=== PATIENT | male | born 1965 | race Caucasian/White ===

== ENCOUNTER 2022-07-07 06:23 | Day surgery (SDC) | payer OTHER, SELFPAY ==
[2022-07-06 08:59] VITALS: BMI 24.8
[2022-07-07] VITALS (9 sets, daily range): BP systolic 111–137; BP diastolic 68–82; PULSE 58–72; RESP 16–19; TEMP 36.1–36.6; O2SAT 97–98
--- NOTE | 2022-07-07 07:00 | W.PM.OPSUD ---
Surgery/Procedure H&P Update DATE OF PROCEDURE: July 07, 2022 DATE H&P PERFORMED: 06/10/22 CHANGES TO PREVIOUS DOCUMENTATION: Patient seen and evaluated in preoperative holding area. Did review his EMG findings which showed bilateral carpal tunnel syndrome and only early cubital tunnel syndrome on the left side. This point time a detailed discussion about his exam findings as well as EMG findings. His EMG is roughly a year old. He had no findings of ulnar nerve neuropathy at the elbow on his EMG however on exam he has positive Tinel's over the cubital tunnel as well as a flexion test at the elbow showing tingling and decreased sensation in the ring and small finger. At this standpoint with shared decision making with the patient he would like to have both the carpal tunnel and cubital tunnel done to his right upper extremity. Patient understands and agrees with current plan. All questions answered. We will proceed with right carpal tunnel release and right cubital tunnel release with possible ulnar nerve transposition PREOP DIAGNOSIS: Right carpal tunnel syndrome, right cubital tunnel syndrome PRIMARY INDICATION FOR PROCEDURE: right carpal tunnel syndrome, right cubital tunnel syndrome PLANNED PROCEDURE: Operation Date: 07/07/22 08:05 Proposed Procedures p Carpal Tunnel Release 10306/carpal tunnel syndrome,bilateral G56.03/56.23(Right) - Heriberto Valverde DO s Ulnar Nerve Transposition 43455/ cubital tunnel syn, bilateral G56.03(Right) - Heriberto Valverde DO
[2022-07-07] MEDS: sodium chloride 0.9% 1,000 ML 30 ML IV (07:03)
--- NOTE | 2022-07-07 07:45 | ANES.PREANE2 ---
Pre-Anesthetic Assessment Height/Weight: Height 1.78 m Weight 78.471 kg Temp Pulse Resp BP Pulse Ox O2 Del Method 97.6 F 72 16 111/68 98 07/07/22 06:39 07/07/22 06:39 07/07/22 06:39 07/07/22 06:39 07/07/22 06:39 07/07/22 06:39 Preop Diagnosis: Right carpal tunnel syndrome, right cubital tunnel syndrome Operation Date: 07/07/22 08:05 Proposed Procedures p Carpal Tunnel Release 25022/carpal tunnel syndrome,bilateral G56.03/56.23(Right) - Heriberto Valverde DO s Ulnar Nerve Transposition 53866/ cubital tunnel syn, bilateral G56.03(Right) - Heriberto Valverde DO Familial anesthetic complications: none Was Beta Mery taken within 24 hours: N/A Was Clonidine taken within 24 hours: N/A Last intake: Intake Last Liquid Date 07/06/22 Last Liquid Time 21:00 Last Solid Date 07/06/22 Last Solid Time 18:00 Social No alcohol and No tobacco Exam alert, oriented x 3, clear to auscultation bilaterally and regular rate & rhythm Airway Submandibular: within normal limits Cervical ROM: within normal limits Mallampati: Class II Dentition: full Musc/skel Osteoarthritis/DJD Neuropsych Neuropathy Anesthetic Plan ASA status: 2 Anesthesia: General Medications/Allergies Home Medications Medication Instructions Recorded Confirmed Last Taken Type gabapentin 300 mg capsule 300 mg PO TID #30 caps 06/02/22 07/06/22 06/29/22 Rx meloxicam 15 mg tablet 15 mg PO DAILY 06/10/22 07/06/22 06/29/22 History Allergies Allergy/AdvReac Type Severity Reaction Status Date / Time codeine AdvReac Intermediate nausea Verified 07/07/22 06:35 Current Medications Generic Name Dose Route Start Last Admin Trade Name Freq PRN Reason Stop Dose Admin Sodium Chloride 1,000 mls @ 30 mls/hr 07/07/22 06:45 07/07/22 07:03 Sodium Chloride 0.9% IV 07/08/22 06:44 30 mls/hr .Q24H RADHA Administration PFSH Anesthesia Medical History Carpal tunnel syndrome Carpal tunnel syndrome, bilateral Cubital tunnel syndrome, bilateral Data Anesthesia Cardiac Studies: No Data to Display
[2022-07-07] MEDS: ceFAZolin 2,000 MG in sodium chloride 0.9% (plus) 50 ML 100 MG IV (08:18)
--- NOTE | 2022-07-07 09:47 | SUR.PHASEI ---
0930 PT TO PACU 5 PT SLEEPS WITH LMA IN PLACE ON RA SATS 100% GOOD AIRMOVEMENT, MONITOR SR WITH NO ECTOPY, VSS RT UPPER ARM TO FINGERS WITH SOFT DRESSING, DISTAL FINGERS PINK WARM WITH FAST CAP REFILL NOTED. BILAT SCDS ON, IV TO LT WRIST #20 WITH 300ML NS AT KVO RATE PER GRAVITY. 0943 PT AWAKENS , LMA REMOVED INTACT, PT AWAKE AND VERBALIZED NO PAIN OR NAUSEA, DR CERVANTES AT BEDSIDE. 0949 PT SLEEPS QUIETLY NO S/S OF PAIN VSS SATS 98%
--- NOTE | 2022-07-07 10:30 | PM.PACU ---
PACU note Narrative: Patient seen and evaluated in PACU. Patient recovering well. Dressings clean dry and intact and in place. Patient wiggling fingers. Patient is still sedated and out of it for thorough examination. His fingers are warm and well-perfused. Exam: somnolent, arousable (See narrative for examination, however limited secondary to patient still sedated from anesthesia.) Disposition: discharged
--- NOTE | 2022-07-07 10:30 | PM.OP2 ---
Brief Operative Note Date of procedure: 07/08/22 Pre-op diagnosis: Right carpal tunnel syndrome right cubital tunnel syndrome Post-op diagnosis: same Procedure Done: Right carpal tunnel release Right cubital tunnel release Surgeon: Heriberto Valverde Estimated blood loss (mL): 5 Complications: None Post-op Plan: Patient to recover in PACU. Patient in bulky soft dressing to hand and elbow. Patient will receive appropriate discharge instructions as well as pain medication postoperatively. We will get patient set up with OT hand therapy to begin range of motion. Patient will see me in office in 2 weeks. Condition: stable Disposition: same day Coding Level of Care Code Acute Cutting And Splicing Supervisor for Mark Valencia
--- NOTE | 2022-07-07 10:34 | P.OP_ITS ---
Operative Report Date of procedure: July 08, 2022 Pre-op diagnosis: Preop Diagnosis Right carpal tunnel syndrome, right cubital tunnel syndrome Post-op diagnosis: Same Procedure done: Right carpal tunnel release Right cubital tunnel release Surgeon: Heriberto Valverde DO Estimated blood loss: 10 30 IV fluids: See anesthesia record Complications: None Findings: See op note Condition: stable Disposition: same day Brief History: Patient was seen and evaluated on my office on 06/10/2022. Catrachito is a pleasant 56-year-old male who was having severe complaints of bilateral carpal tunnel syndrome as well as some complaints of ulnar nerve decreased sensation bilaterally as well. Patient a year prior to had a full work-up of an EMG and nerve conduction study which was done in [place]. 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 He was seen by his primary care physician referred to my office. His findings are consistent for bilateral carpal tunnel syndrome. On my examination in the office he did have signs of right cubital tunnel syndrome as well. As result I waited for patient to get my office the results from his EMG study from roughly a year ago. On the my discussion with Catrachito ended that once I see the results we will book him for a surgery for for sure a right carpal tunnel release however plus or minus right cubital tunnel release. His results came back with bilateral moderate carpal tunnel syndrome as well as early onset left cubital tunnel syndrome but still within normal limits. Patient's failed conservative treatment and ultimately wants to pursue surgical intervention. In the office we did have detailed discussion about the risk benefits complications alternatives of surgical nonsurgical treatment options and at this point time he is dealt with this long enough and he would like to have something done. He understands the risks which include but not limited to make it better, make it worse, not full sensation return of the nerve secondary to the chronicity of the carpal tunnel and cubital tunnel risk for infection, wound complications injury to nerves or vessels. Understanding these risks he does agree to proceed with surgical intervention. As result patient was booked for right carpal tunnel syndrome plus or minus right cubital tunnel syndrome with possible ulnar nerve transposition. In the preoperative holding area I did perform perform an additional physical examination he was positive for older elbow flexion test which elicited small finger symptoms in the office he was extremely positive Tinel's however today was more mild. At this point we did share in decision making and at this point patient is taking the time off for surgery and given he has decreased sensation in all 5 of the fingers with positive provocative symptoms on exam at the elbow even though his EMG from a year ago states that he did not have signs of ulnar nerve neuropathy at the elbow he ultimately through shared decision making with myself we agreed to proceed with a right cubital tunnel release with possible ulnar nerve transposition as well as a right carpal tunnel syndrome. Patient understands and agrees with current plan. All questions answered. Final consent was confirmed for right carpal tunnel syndrome and right cubital tunnel syndrome with possible ulnar nerve transposition Procedure: Patient was seen evaluated in the preoperative holding area. Consent was reviewed with patient and obtained. Correct extremity was then marked. Patient was then evaluated by the preoperative team. Seen by the anesthesia department. Patient was then taken to the operative suite and placed on the OR table supine position with a right arm table. Patient was appropriately secured all bony prominences well-padded. Patient next received appropriate preoperative antibiotics. Patient then underwent anesthesia per the anesthesia department. Final timeout was then performed. Patient's right upper extremity was then prepped and draped in standard orthopedic fashion. A sterile tourniquet was then placed to the right upper extremity. Esmarch tourniquet was used exsanguinate the extremity and tourniquet was inflated to 250 mmHg. First we started with our carpal tunnel syndrome marked her appropriate borders in line with the fourth ray starting at my most distal aspect the incision at the Ellsworth's cardinal line. This was then advanced roughly 2-1/2 cm in length. Sharp scalpel excision through skin and subcutaneous tissue. Palmar fascia was then encountered and then split longitudinally self retainer was then placed gentle feathering was then performed and encountered the palmaris brevis and then directly over top of the transverse carpal ligament was identified. This was then incised with a 15 blade scalpel until I encountered the floor of the ligament. I then entered the carpal tunnel. Once a small hole was then made I utilized a [place] to mobilize the ligament both proximally and distally. I then utilized Littler dissection scissors with care to stay above the contents of the carpal tunnel and released the transverse carpal ligament distally to the distalmost extent of the ligament and then encountered fat and the distal release was complete. Next I utilized Littler's to open a space above the transverse carpal ligament proximally. A Bry rake was then placed above the ligament and a [place] was then placed directly underneath the transverse carpal ligament at this point used sharp scalpel excision to incise directly over to the [place] with care and injure no contents of the carpal tunnel. Once a had a larger opening I then switched my Littler dissection scissors and under direct loupe magnification visualization released to the proximal extent of the transverse carpal ligament with care to have my light layers curved ulnarly with care to not injure the palmar cutaneous branch of the median nerve. Once appropriately decompressed proximally I then placed a [place] underneath proximally and found no bands of constriction above the median nerve and appropriate decompression of the transverse carpal ligament and the medial antebrachial fascia. Contents of the carpal tunnel were inspected and no evidence of masses. The median nerve did have significant hourglass deformity due to constriction of the transverse carpal ligament. Care was made to not injure the recurrent motor branch of the median nerve. This completed the carpal tunnel release. Wound bed was thoroughly irrigated and closed with interrupted nylon 4-0 suture. Next attention was then turned towards the cubital tunnel release. A small curvilinear incision directed over the course of the ulnar nerve was then made centered between the medial epicondyle as well as the olecranon. Total incision length was roughly 6 cm. Sharp scalpel excision through skin and subcutaneous tissue. Care was made to not injure the cutaneous nerve branch. Then dissected directly down to the fascia of the FCU. The by pentetate heads of the fascia was then identified and incision was then made directly over the fascia the muscle belly was spread and the ulnar nerve was then found. At this point under direct loupe magnification and appropriate retraction I then released the cubital tunnel distally until there is no areas of entrapment this point then I utilized a combination of sharp scalpel excision as well as Littler dissection scissors to track and release our nerve up proximally. The nerve did appear to be compressed at the level of the Henriquez's ligament with hourglass formation as well as areas of irritation/inflammation. Henriquez's ligament was then released and the nerve was then traced proximally. Littler dissection scissors were used to completely decompress the nerve proximally as well as then with blunt dissection to confirm complete release of the ulnar nerve proximally. Ulnar nerve was then appropriately decompressed with no areas of entrapment and then the elbow was then taken through range of motion to evaluate for any subluxation. No subluxation was performed as result decompression left in situ. Wound bed was then thoroughly irrigated. The tourniquet was then deflated. Hemostasis was maintained with bipolar electrocautery as well as manual pressure. Simple interrupted subcu 2-0 Vicryl suture were then placed to close to approximate the skin edges and then a running horizontal mattress stitch was then placed with 4-0 nylon suture. Fingers warm well perfused. Hemostasis adequate at the carpal tunnel incision. Incisions were then dressed with Xeroform 4 x 4's ABDs Curlex and an Carlo wrap. Patient was then awakened from anesthesia and taken to PACU in stable condition. Disposition: Patient taken to PACU in stable condition. Will be given appropriate discharge directions as well as pain medication. We will get him set up with OT therapy early next week for early range of motion and dressing change. We will see me in office in 2 weeks. He understands if he has any questions he can contact the office.
--- NOTE | 2022-07-07 14:06 | ANE.PACU2 ---
Inpatient post-anesthesia follow up: Airway intact: Yes Vital signs: Temperature 98 F Pulse Rate 60 Respiratory Rate 17 Blood Pressure 130/74 Pulse Oximetry 98 Oxygen Delivery Me thod Room Air Oxygen Flow Rate Fraction of Inspir ed Oxygen Hydration adequate: Yes Nausea and vomiting: No Pain level: 1 Mental status: Baseline
== END 2022-07-07 10:40 | disposition home or self-care (01) ==
PROVIDERS: PCP Family Medicine; Visit Provider Student in an Organized Health Care Education/Training Program
PROC: (CPT 64721; principal; 2022-07-07 08:05)
PROC: (CPT 64719; 2022-07-07 08:05)
DX: G56.03 Carpal tunnel syndrome, bilateral upper limbs (principal); G56.23 Lesion of ulnar nerve, bilateral upper limbs; Z88.5 Allergy status to narcotic agent
CPT/HCPCS: 64719; 64721; J1100; J1885; J2250; J2405; J2704; J2795; J3010; J3490; J7030

== ENCOUNTER 2022-07-12 | Outpatient (RCR) | payer OTHER, SELFPAY | END 2022-07-23 23:59 | disposition home or self-care (01) | LOC: SOT | PROVIDERS: PCP Family Medicine; Visit Provider Student in an Organized Health Care Education/Training Program | DX: G56.01 Carpal tunnel syndrome, right upper limb (principal); G56.21 Lesion of ulnar nerve, right upper limb | CPT/HCPCS: 97110; 97165 ==

== ENCOUNTER 2022-07-28 08:18 | Day surgery (SDC) | payer OTHER, SELFPAY ==
--- NOTE | 2022-07-28 07:50 | ANES.PREANE2 ---
Pre-Anesthetic Assessment Height/Weight: Height 1.78 m Weight 77.111 kg Preop Diagnosis: Right carpal tunnel syndrome, right cubital tunnel syndrome Operation Date: 07/28/22 09:50 Proposed Procedures p RIGHT CARPAL TUNNEL RELEASE [id number], RIGHT CUBITAL TUNNEL RELEASE WITH POSSIBLE ULNAR NERVE TRANSPOSITION 55395, 25731,G56.03,G56.23(Right) - Heriberto Valverde DO s Cubital Tunnel Release(Right) - Heriberto Valverde DO Familial anesthetic complications: None Was Beta Mery taken within 24 hours: N/A Was Clonidine taken within 24 hours: N/A Social No alcohol and No tobacco Exam alert, oriented x 3, clear to auscultation bilaterally and regular rate & rhythm Airway Submandibular: within normal limits Cervical ROM: within normal limits Mallampati: Class II Dentition: full History/ROS No significant complaints Pulmonary None reported CV/HEM None reported None reported Hepatic None reported GI None reported Metabolic None reported Musc/skel Osteoarthritis/DJD carpal tunnel syndrome Neuropsych Neuropathy Anesthetic Plan ASA status: 2 Anesthesia: Anesthesia Evaluation, General and MAC Other: I discussed with the patient risks, goals, and benefits of MAC and general anesthesia. We discussed spectrum of MAC anesthesia including conversion to general as well as possibility of recall of intraoperative stimuli including discomfort/pain. Patient agrees to proceed with MAC. Risk of > 500 ml blood loss (7ml/kg in children): No Medications/Allergies Home Medications Medication Instructions Recorded Confirmed Last Taken Type meloxicam 15 mg tablet 15 mg PO DAILY 06/10/22 07/28/22 07/27/22 History Allergies Allergy/AdvReac Type Severity Reaction Status Date / Time codeine AdvReac Intermediate nausea Verified 07/28/22 08:27 [facility] Anesthesia Medical History Carpal tunnel syndrome Carpal tunnel syndrome, bilateral Cubital tunnel syndrome, bilateral Data Anesthesia Cardiac Studies: No Data to Display
[2022-07-28 08:31] VITALS: BP 112/69; PULSE 61; RESP 18; TEMP 36.1; O2SAT 97
[2022-07-28] MEDS: sodium chloride 0.9% 1,000 ML 30 ML IV (08:47)
[2022-07-28] MEDS: acetaminophen 1,000 MG/100 ML PIGGYBACK 400 MG IV (08:48)
[2022-07-28] MEDS: ketorolac 30 mg/mL INJ IVP (08:48)
[2022-07-28] MEDS: ceFAZolin 2,000 MG in sodium chloride 0.9% (plus) 50 ML 100 MG IV (11:17)
--- NOTE | 2022-07-28 11:17 | W.PM.OPSUD ---
Surgery/Procedure H&P Update DATE OF PROCEDURE: July 28, 2022 DATE H&P PERFORMED: 08/19/22 CHANGES TO PREVIOUS DOCUMENTATION: None PREOP DIAGNOSIS: Left carpal tunnel syndrome, left cubital tunnel syndrome PRIMARY INDICATION FOR PROCEDURE: Left carpal tunnel left carpal tunnel syndrome, left cubital tunnel syndrome. PLANNED PROCEDURE: Operation Date: 07/28/22 09:50 Proposed Procedures p RIGHT CARPAL TUNNEL RELEASE [id number], RIGHT CUBITAL TUNNEL RELEASE WITH POSSIBLE ULNAR NERVE TRANSPOSITION 23722, 80596,G56.03,G56.23(Right) - Hreiberto Valverde DO s Cubital Tunnel Release(Right) - Heriberto Valverde DO
[2022-07-28] MEDS: lidocaine 1% INJ 50 mL INJECTION (11:40)
--- NOTE | 2022-07-28 12:00 | P.OP_ITS ---
Brief Operative Note Date of procedure: 07/29/22 Pre-op diagnosis: Left carpal tunnel syndrome, left cubital tunnel syndrome Post-op diagnosis: same Procedure Done: Left carpal tunnel release, left cubital tunnel release Surgeon: Heriberto Valverde Estimated blood loss (mL): 5 Complications: None Post-op Plan: Patient recovering in PACU. Dressing clean dry and intact fingertips warm well perfused. Patient soft dressing on in place. Patient pain well controlled. Will be given appropriate discharge instructions was pain medication postoperatively. We will get him seen by OT hand therapy for early dressing change and beginning a range of motion. We will see him back in the office in 2 weeks for repeat evaluation and sutures removal. Condition: stable Disposition: same day Coding Level of Care Code Acute Psychiatric Aide Instructor for Mark Valencia
--- NOTE | 2022-07-28 12:09 | PM.PACU ---
PACU note Narrative: Patient seen evaluated in PACU resting comfortably. Patient able to follow commands. Still has some numbness in median nerve distribution secondary to local block. He is able to wiggle his fingers. Fingertips warm well perfused. Brisk capillary refill less than 2 seconds. Dressing on in place clean dry and intact. Exam: awake (See narrative for detailed exam) Disposition: discharged
[2022-07-28 12:37] VITALS: BP 131/76; PULSE 70; RESP 10; TEMP 36.4; O2SAT 98
[2022-07-28 12:42] VITALS: BP 124/75; PULSE 67; RESP 12; O2SAT 97
[2022-07-28 12:47] VITALS: BP 129/72; PULSE 72; RESP 15; O2SAT 98
[2022-07-28 12:52] VITALS: BP 130/76; PULSE 64; RESP 14; TEMP 36.3; O2SAT 96
[2022-07-28 12:59] VITALS: BP 129/69; PULSE 64; RESP 16; TEMP 36.4; O2SAT 98
[2022-07-28] MEDS: HYDROcodone-acetaminophen 5-325 mg Tablet 1 TAB PO (13:40)
--- NOTE | 2022-07-28 13:41 | ANE.PACU2 ---
Inpatient post-anesthesia follow up: Airway intact: Yes Vital signs: Temperature 97.5 F Pulse Rate 64 Respiratory Rate 16 Blood Pressure 129/69 Pulse Oximetry 98 Oxygen Delivery Me thod Room Air Oxygen Flow Rate Fraction of Inspir ed Oxygen Hydration adequate: Yes Nausea and vomiting: No Pain level: 1 Mental status: Baseline
--- NOTE | 2022-07-28 15:59 | P.OP_ITS ---
Operative Report Date of procedure: July 28, 2022 Pre-op diagnosis: Preop Diagnosis Left carpal tunnel syndrome, left cubital tunnel syndrome Post-op diagnosis: Same Procedure done: Left carpal tunnel release, left cubital tunnel release Surgeon: Heriberto Valverde DO Estimated blood loss: 5 cc 23 minutes IV fluids: See anesthesia record Complications: None Findings: See operative note Condition: stable Disposition: same day Brief History: Catrachito is a pleasant established 56-year-old gentleman to my practice. He has been seen evaluated and worked up for his bilateral carpal tunnel syndrome as well as bilateral cubital tunnel syndrome. Initially on his presentation he had significant right symptoms over left. He had a previous EMG findings consistent with bilateral carpal tunnel syndrome as well as early left cubital tunnel syndrome back in 2020. This point time he is now almost 3 weeks out from his right carpal tunnel release and right cubital tunnel release. He is doing extremely well. He was seen in my office in outpatient follow-up and at that point time through shared decision making talked about the risk benefits complication alternatives to nonoperative operative treatment for the left carpal tunnel syndrome and left cubital tunnel syndrome. Ultimately through shared decision-making elects proceed with surgical intervention for left carpal tunnel release and left cubital tunnel release. Detailed the ins and outs of the procedure. He understands the risk benefits complications alternatives to treatment options. Risks include but are not limited to make it better, make it worse, infection, loss of function to the hand, permanent paresthesias injury to nerves or vessels, and incomplete recovery of peripheral neuropathy. Patient understand these risks and agrees to proceed with surgical intervention. Consent was obtained in the office. All questions answered. Procedure: Patient was seen evaluated in the preoperative holding area. Consent was reviewed with patient the correct extremity was marked as well as sites for surgery. All questions were answered. He was seen evaluated by the anesthesia department as well as preoperative team. Once cleared for surgery was taken back to the OR suite and transported onto the operative table with armboard to the left upper extremity. He underwent anesthesia per the anesthesia department. Once appropriately anesthetized patient was then prepped and draped in standard orthopedic fashion. Final timeout performed. Patient received a ppropriate preoperative antibiotics. Sterile tourniquet was applied to the left upper extremity. Esmarch tourniquet was used exsanguinate the extremity to 250 mmHg. Patient underwent local anesthesia to the left carpal tunnel with 5 cc of lidocaine and 5 cc of ropivacaine. This point time marked my standard incision in line with the fourth ray at the ulnar border and my most distal extent being at Ellsworth's cardinal line. I made a small 2.5 cm incision centering directly over the transverse carpal ligament. Sharp scalpel excision through skin and subcutaneous tissue. I then incised the palmar fascia longitudinally. Utilize a self retainer as well as Kasdan retractors to protect all neurovascular important structures. I then sharp scalpel excision directly over the transverse carpal ligament until I encountered entered the carpal tunnel. This point time I switched to Littler dissection scissors and at this point I focused my attention distally. Utilizing care to not injure any nerves or vessels I then on direct direct loupe magnification visualization used the scissors to release the carpal tunnel distally until I encountered the palmar fat this released and freed my median nerve distally. At this point I then spread on top of the transverse carpal ligament proximally and placed my Bry rake in this area elevating the fat off of the transverse carpal ligament and under direct visualization utilized my scissors to complete my transverse carpal release proximally under direct visualization with care to curved my scissors to the ulnar side and not to injure the palmar cutaneous branch of the median nerve. This completed my decompression I utilized a Munday that felt no entrapment of the nerve proximally and complete release into the median antebrachial fascia. Confirm no entrapment proximally. I then once again followed the nerve distally and showed complete release of the transverse carpal ligament distally. Care was made to not injure the motor recurrent branch. Throughout this case. The nerve was inspected and showed signs of hourglass deformity due to its entrapment with moderate irritation inflammation noted around the nerve. No masses were noted within the carpal tunnel. This completed my carpal tunnel release. The wound bed was then thoroughly irrigated. Interrupted nylon suture was then used to close the skin. Next I turned my attention towards the cubital tunnel release. I utilized sharp scalpel excision in a curvilinear fashion centering in line with the ulnar nerve path. Sharp scalpel through skin and subcutaneous tissue. Immediately once I encountered subcutaneous tissue I then switched my Littler dissection scissors to protect any subcutaneous branches. This point time I dissected directly down over the course of the ulnar nerve. I incised between the 2 heads of the FCU fascia and identified the nerve distally. Once this was found there was noted to be a significant entrapment at the Henriquez's ligament where the nerves appear to be significantly entrapped. At this point I utilized a combination of 15 blade scalpel as well as Littler dissection scissors to completely decompress the nerve distally and was able to place my finger into the distal aspect of the forearm with no areas of entrapment of the ulnar nerve. I then utilized my dissection scissors to remove Henriquez's ligament and free the entrapment in this area. I then followed by release proximally. The lysis was performed of the nerve with dissection scissors. I then released the nerve completely proximally into the upper arm with no further evidence of entrapment. The elbow was then taken through multiple ranges of motion of flexion extension with no evidence of ulnar nerve subluxation. The nerve was noted to be significantly irritated at Henriquez's ligament. This point the wound bed was then thoroughly irrigated. The tourniquet was deflated. I utilized bipolar electrocautery to maintain exact hemostasis. I then closed the subcutaneous tissue with 3-0 interrupted Vicryl sutures. And then in a running horizontal mattress stitch closed the skin with nylon suture. Patient's left hand was checked and was warm well-perfused brisk capillary refill less than 2 seconds. Incisions were then cleaned patted dry and Xeroform 4 x 4's ABD Curlex and an Carlo wrap was placed to the left upper extremity. Patient was then awakened from anesthesia and taken to PACU in stable condition. Patient tolerated procedure without complications. Disposition: Patient recovering in PACU. Patient seen and evaluated and doing well. Dressing on in place clean dry and intact. He will be given appropriate discharge instructions as well as pain medication and appropriate follow-up. We will have him see our OT hand therapy department within the next week for dressing takedown as well as to begin range of motion and nerve gliding exercises. Patient understands and agrees with current plan. All questions answered. He will see me in 2 weeks.
== END 2022-07-28 14:33 | disposition home or self-care (01) ==
PROVIDERS: PCP Family Medicine; Visit Provider Student in an Organized Health Care Education/Training Program
PROC: (CPT 64721; principal; 2022-07-28 09:40)
PROC: (CPT 64718; 2022-07-28 09:40)
DX: G56.02 Carpal tunnel syndrome, left upper limb (principal); G56.22 Lesion of ulnar nerve, left upper limb
CPT/HCPCS: 64718; 64721; J1100; J1885; J2250; J2405; J2704; J2795; J3010; J7030

== ENCOUNTER 2022-08-05 06:00 | Outpatient (RCR) | payer OTHER, SELFPAY | END 2022-08-23 23:59 | disposition home or self-care (01) | LOC: SOT 06:00 | PROVIDERS: PCP Family Medicine; Visit Provider Student in an Organized Health Care Education/Training Program | DX: G56.02 Carpal tunnel syndrome, left upper limb (principal) | CPT/HCPCS: 97110; 97166 ==

== ENCOUNTER → 2022-08-12 08:04 | Outpatient (BNVA) | payer OTHER, SELFPAY | PROVIDERS: PCP Family Medicine; Visit Provider Student in an Organized Health Care Education/Training Program | DX: M17.0 Bilateral primary osteoarthritis of knee (principal); G56.23 Lesion of ulnar nerve, bilateral upper limbs; G56.03 Carpal tunnel syndrome, bilateral upper limbs | CPT/HCPCS: 73560; 73565 ==

== ENCOUNTER 2022-08-30 06:13 | Outpatient (CLI) | payer OTHER, SELFPAY ==
--- NOTE | 2022-08-30 06:30 | CT_ITS ---
WS: [id number] CT LEFT KNEE, NONCONTRAST TECHNIQUE: Noncontrast CT of the LEFT knee to include the LEFT hip and ankle. CLINICAL INFORMATION: LEFT TKA OMARI PROTOCOL COMPARISON: None. DLP: [id number] scans at [facility] use at least one of these dose optimization techniques: automated e xposure control; mA and/or kV adjustment per patient size (includes targeted exams where dose is matc hed to clinical indication); or iterative reconstruction. FINDINGS: Advanced tricompartmental arthritis worse the medial joint compartments. Chondrocalcinosis. Hypertrop hic changes along the joint line. Slightly hypertrophic patella. Mild degenerative narrowing both hip s with slight hypertrophic changes. CT/CT knee LT [facility] IMPRESSION: Images obtained for preoperative purposes.
== END 2022-08-30 06:14 | disposition home or self-care (01) ==
LOC: RAD 06:14
PROVIDERS: PCP Family Medicine; Visit Provider Student in an Organized Health Care Education/Training Program
DX: Z01.818 Encounter for other preprocedural examination (principal); M25.562 Pain in left knee
CPT/HCPCS: 73700

== ENCOUNTER 2022-08-31 11:43 | Outpatient (CLI) | payer OTHER, SELFPAY | END 2022-08-31 11:44 | disposition home or self-care (01) | LOC: RT 09-01 11:44 | PROVIDERS: PCP Family Medicine; Visit Provider Student in an Organized Health Care Education/Training Program | DX: Z01.89 Encounter for other specified special examinations (principal) | CPT/HCPCS: 93005 ==

== ENCOUNTER 2022-09-08 09:27 | Observation (INO) | payer OTHER, SELFPAY ==
--- NOTE | 2022-08-31 14:12 | ECG_ITS ---
[facility] Test Date: 2022-08-31 Pat Name: Catrachito Phillips Department: Room: Gender: Male [employer] Culler: : 1965 Requested By: Heriberto Valverde Order Number: [id number] Thai MD: Bebeto Marie M.D. Measurements Intervals [place] Rate: 70 P: 15 WA: 151 QRS: 12 QRSD: 91 T: 5 QT: 357 QTc: 385 Interpretive Statements SINUS RHYTHM No previous ECG available for comparison Electronically Signed On 08-31-2022 21:06:49 PROFESSIONAL FEE CODER by Bebeto Marie M.D. [id number]
[2022-08-31 14:28] VITALS: BMI 24.3
[2022-08-31 15:21] LABS: Add Urine Microscopic? NO; Charge for UA Resulting for Rev
[2022-08-31 15:25] LABS: Basophils # 0.1 10^3/uL (0.0-0.1); Basophils % 1.2 %; Eosinophils # 0.1 10^3/uL (0.0-0.8); Hematocrit 44.4 % (42.0-52.0); Hemoglobin 15.3 g/dL (11.7-16.6); Lymphocytes # 1.8 10^3/uL (0.8-4.8); Lymphocytes % 35.3 %; Mean Corpuscular HGB Conc 34.5 g/dL (30.0-36.0); Mean Corpuscular Volume 92.9 fl (80-94); Mean Platelet Volume 9.8 fL (7.4-10.4); Monocytes # 0.6 10^3/uL (0.2-0.9); Monocytes % 12.7 %; Neutrophils # 2.47 10^3/uL (1.8-7.7); Neutrophils % 49.6 %; Nucleated Red Blood Cells % 0 %; Platelet Count 254 10^3/cmm (130-400); Red Blood Count 4.78 10^6/uL (4.1-5.3); Red Cell Distribution Width 11.9 % (12.1-15.1)
--- NOTE | 2022-08-31 15:35 | P.ANESASSM_ITS ---
Pre-Anesthetic Assessment Height/Weight: Height 1.78 m Weight 77.111 kg Preop Diagnosis: Left knee degenerative joint disease Operation Date: 09/08/22 10:20 Proposed Procedures p Justin Robot Total Knee Arthroplasty(Left) - Heriberto Valverde DO Familial anesthetic complications: none Was Beta Mery taken within 24 hours: N/A Was Clonidine taken within 24 hours: N/A Social No alcohol and No tobacco Exam alert, oriented x 3, clear to auscultation bilaterally and regular rate & rhythm Airway Submandibular: within normal limits Cervical ROM: within normal limits Mallampati: Class II Dentition: full Musc/skel Osteoarthritis/DJD Anesthetic Plan ASA status: 2 Anesthesia: Regional (specify below) (SAB with adductor blk) Medications/Allergies Home Medications Medication Instructions Recorded Confirmed Last Taken Type meloxicam 15 mg tablet 15 mg PO DAILY 06/10/22 08/12/22 07/27/22 History Allergies Allergy/AdvReac Type Severity Reaction Status Date / Time codeine AdvReac Intermediate nausea Verified 08/31/22 14:30 [facility] Anesthesia Medical History (Updated 08/16/22 @ 20:59 by Heriberto Vavlerde DO) Carpal tunnel syndrome Carpal tunnel syndrome, bilateral Cubital tunnel syndrome, bilateral Left knee DJD Right knee DJD Data Anesthesia : 08/31/22 14:45 08/31/22 14:45 Short CBC 08/31/22 Range/Units 14:45 WBC 5.0 (4.0-10.0) 10^3/uL Hgb 15.3 (11.7-16.6) g/dL Hct 44.4 (42.0-52.0) % MCV 92.9 (80-94) fl Plt Count 254 (130-400) 10^3/cmm Neut % (Auto) 49.6 % Neut # (Auto) 2.47 (1.8-7.7) 10^3/uL Cardiac Studies: No Data to Display
[2022-08-31 15:37] LABS: INR 1.02 (0.8-1.2)
[2022-08-31 15:41] LABS: Bilirubin Urine Neg (Negative); Blood Urine Neg (Negative); Glucose Urine UA Norm (Normal); Ketones Urine Negative (Negative); Leukocyte Esterase Urine Negative (Negative); Nitrate Urine Negative (Negative); Protein Urine Neg (Negative); Urine Appearance Clear (CLEAR); Urine Color Yellow (Yellow); Urobilinogen Urine Neg (Negative); pH Urine 5 (5-7)
[2022-08-31 15:42] LABS: Alanine Aminotransferase 18 U/L (0-41); Albumin Level 4.3 g/dL (3.5-5.2); Alkaline Phosphatase 72 U/L (40-130); Anion Gap 13.1 (5-19); Aspartate Amino Transferase 18 U/L (0-40); Blood Urea Nitrogen 8 mg/dL (6-20); Calcium 9.3 mg/dL (8.5-10.5); Carbon Dioxide 29 mmol/L (22-29); Chloride 97 mmol/L (98-107); Creatinine Clr Calc Pharmacy 111.4482; Globulin 2.9 g/dL (1.3-4.6); Glomerular Filtration Rate 100.7 mL/min (90-130); Glucose 84 mg/dL (65-115); Osmolality Calculated 278 mOsm/kg (285-295); Potassium 4.1 mmol/L (3.5-5.1); Sodium 135 mmol/L (136-145); Total Bilirubin 0.3 mg/dL (0.15-1.2); Total Protein 7.2 g/dL (6.6-8.7)
[2022-09-08] VITALS (18 sets, daily range): BP systolic 104–119; BP diastolic 52–76; PULSE 68–100; RESP 15–19; TEMP 36.1–36.6; O2SAT 94–99
[2022-09-08] MEDS: sodium chloride 0.9% 1,000 ML 30 ML IV (06:05)
[2022-09-08] MEDS: acetaminophen 1,000 MG/100 ML PIGGYBACK 400 MG IV (06:05)
[2022-09-08] MEDS: scopolamine 1.5 Patch 1 PATCH TRANSDERMA (06:07)
[2022-09-08] MEDS: ketorolac 30 mg/mL INJ IVP (06:14)
[2022-09-08] MEDS: gabapentin 300 mg Capsule PO (06:15)
--- NOTE | 2022-09-08 06:27 | P.ANESUD_ITS ---
Pre-Anesthetic Update Pre-Anesthetic Assessment: Date of Surgery/Procedure: 09/08/22 Preop Karen gnosis: Left carpal tunnel syndrome, left cubital tunnel syndrome Proposed Procedure: Operation Date: 09/08/22 07:00 Proposed Procedures p Justin Robot Total Knee Arthroplasty(Left) - Heriberto Valverde, DO Any changes to Pre-Anesthetic Assessment?: No Last Intake: Intake Last Liquid Date 09/07/22 Last Liquid Time 21:00 Last Solid Date 09/07/22 Last Solid Time 17:30 Vitals: Temperature 97.8 F 09/08/22 05:49 Temperature Source Temporal Artery S can 09/08/22 05:49 Pulse Rate 72 09/08/22 05:49 Respiratory Rate 16 09/08/22 05:49 Blood Pressure 111/71 09/08/22 05:49 Blood Pressure Senia n 84 09/08/22 05:49 Pulse Oximetry 95 09/08/22 05:49 Oxygen Delivery Me thod 09/08/22 05:49 Exam: Pre-Anes Outpt Exam: alert, oriented x 3, clear to auscultation bilaterally and regular rate & rhythm Cardiac Studies: No Data to Display
--- NOTE | 2022-09-08 07:03 | W.PM.OPSUD ---
Surgery/Procedure H&P Update DATE OF PROCEDURE: September 08, 2022 DATE H&P PERFORMED: 08/12/22 CHANGES TO PREVIOUS DOCUMENTATION: None PREOP DIAGNOSIS: Left knee degenerative joint disease with failed conservative treatment PRIMARY INDICATION FOR PROCEDURE: Left knee degenerative joint disease with failed conservative treatment PLANNED PROCEDURE: Operation Date: 09/08/22 07:00 Proposed Procedures p Justin Robot Total Knee Arthroplasty(Left) - Heriberto Valverde DO
[2022-09-08] MEDS: ceFAZolin 2,000 MG in sodium chloride 0.9% (plus) 50 ML 100 MG IV ×3 (07:10→23:23)
[2022-09-08] MEDS: ketorolac 30 mg/mL INJ XX (08:14)
[2022-09-08] MEDS: EPINEPHrine 1 mg/mL INJ XX (08:15)
[2022-09-08] MEDS: tranexamic acid 1,000 mg/10mL SDV 1000 MG XX (08:16)
--- NOTE | 2022-09-08 09:56 | PC.NURSE ---
ice applied to left knee
--- NOTE | 2022-09-08 10:01 | XR_ITS ---
WS: [id number] Exam: XR knee LT 1-2V 64505 Date/Time of Exam: 09/08/2022 10:01 AM Reason For Exam: postop TKA Comparison 08/12/2022. Total knee arthroplasty noted in excellent position. Postoperative changes in the adjacent soft tissu es. XR/XR knee LT 1-2V 34364 IMPRESSION: 1. Total knee arthroplasty in excellent position.
--- NOTE | 2022-09-08 10:05 | P.OP_ITS ---
Brief Operative Note Date of procedure: 09/08/22 Pre-op diagnosis: Degenerative joint disease to left knee, failed conservative treatment Post-op diagnosis: same Procedure Done: Left total knee arthroplasty, cemented Surgeon: Heriberto Valverde Estimated blood loss (mL): 50 Complications: None Post-op Plan: Patient recovering well in PACU. Patient received spinal anesthesia. Dressing on in place clean dry and intact. Will be admitted to the floor. Will be seen evaluated by internal medicine for medical management. PT/OT. Pain control. DVT prophylaxis with aspirin 325 twice daily. Weightbearing as tolerated left lower extremity, range of motion left knee as tolerated. Plan for likely discharge tomorrow. Condition: stable Disposition: floor Coding Level of Care Code Acute Slope Hoist Operator for Mark Valencia
--- NOTE | 2022-09-08 10:06 | PM.PACU ---
PACU note Narrative: Patient recovering well in PACU. Pain controlled. Received spinal anesthesia unable to assess motor or sensory. Dressing on in place clean dry and intact distal pulses palpable. Exam: awake (See narrative for detailed exam) Disposition: admitted
--- NOTE | 2022-09-08 10:07 | PM.OP ---
Operative Report Date of procedure: September 08, 2022 Pre-op diagnosis: Preop Diagnosis Left knee degenerative joint disease with failed conservative treatment Post-op diagnosis: Same Procedure done: Left total knee arthroplasty, cemented?Justin Implants: Size 4 triathlon Joaquim cruciate retaining femoral implant Size 4 triathlon tibial universal baseplate Size 4 polyethylene 11 mm thick Asymmetric patella 32 mm Surgeon: Heriberto Valverde DO Estimated blood loss: 50mL 75min IV fluids: See anesthesia record Complications: None Findings: See operative report Condition: stable Disposition: floor Brief History: Patient is a 56-year-old male seen evaluated in the outpatient setting for degenerative joint disease of his bilateral knees. We are working up his left knee as this hurts him more. Patient's failed conservative treatment in the outpatient setting. His x-ray findings consistent with severe degenerative joint disease with [id number] arthritis. He has failed injections as well as stem cells. At this point in time after thorough detailed discussion we talked about next step for surgical intervention being a left total knee arthroplasty. This point time he is mentally ready to pursue this treatment option and like to pursue a left total knee arthroplasty. We talked about the risk benefits complication alternatives surgical nonsurgical treatment options. He understands and agrees to proceed with surgical intervention. All questions answered. Procedure: Patient seen evaluated in the preoperative holding area. Consent was reviewed with patient and signed. The correct extremity was then marked. Patient seen evaluated by the anesthesia and preoperative team once cleared for surgery was taken back to the operative suite. Patient taken back to the operative suite. He underwent spinal anesthesia per the anesthesia department. He transported the operative table. All bony prominences well-padded patient was appropriately secured to the bed. This point time the left lower extremity was then prepped and draped in standard orthopedic fashion. Patient received appropriate preoperative antibiotics. Final timeout performed. Esmarch tourniquet was used exsanguinate the left lower extremity. Tourniquet was insufflated to 325 mmHg. A standard anterior incision was made over midline of the knee. Sharp scalpel excision through skin and subcutaneous tissue full-thickness skin flaps were made. Fascia was elevated off of the extensor retinaculum was stable with parapatellar arthrotomy was then made. The performed standard sequential releases with a medial release was patient had a varus deformity. Next the the patella was then stopped and the knee was then flexed. Armboard was placed superiorly around the anterior aspect of the femur this was freed avulsed synovium and I subsequently then placed by 2 femur pins to establish my femur arrays for the Justin robot. These were then placed bicortically and by femur rate was then appropriately secured with appropriate visualization. Next attention was turned towards the tibial rays. These were then drilled sequentially bicortically in parallel fashion. I then placed my guide as well as my tibial array on in place. This was appropriately secured and had excellent visualization with the Justin robot. Next the tibial checkpoint as well as femur checkpoint were then placed. At this point time I then subsequently established my head center as well as my medial lateral malleoli as well as my checkpoints. Next utilizing standard [employer] technology I then mapped out the appropriate points and confirmation points around the femur as well as the tibia in standard fashion. Once this was then done I then removed all osteophytes in preparation for dynamic testing. All osteophytes were removed as well as I removed the ACL and left the PCL intact. At this point time the knee was brought into full extension and we performed our standard evaluation of our gap balancing stressing her ligaments and extension as well as flexion appropriate adjustments were made to have appropriate gap balancing in both flexion and extension. This plan for final counts. We get a preoperative plan evaluating our implants which was a size 4 femur and a size 4 tibia. Next we brought in the Justin robot and sequentially made our femur cuts. All excess bony cuts were then removed. Finally we made our tibial cut. Once this was done a standard PCL retractor was then placed into this position I excised the medial and lateral meniscus. The tibial cut was then subsequently removed all excess bony debris was removed. I then utilized a lamina primary care sales representative and remove the posterior osteophytes. At this point time sized the tibia and confirmed this was a size 4. I utilized our blunt probe to establish rotation of her tibial implant. Once this was done I then placed my tibia size 4 trial in appropriate position and then subsequently placed tibial pins to hold this into place placed a size 9 mm poly as well as a size 4 femur which was appropriately impacted in place knee was then subsequently brought into extension. Slight hyperextension was then subsequently noted. I increased my policy thickness to 11 mm and this was stable with varus valgus stress. Bringing up into flexion this did feel slightly tight. Then utilizing electrocautery performed a standard PCL release as we were using ultracongruent tibial poly-. Once this was done I had excellent balance gaps in flexion and extension with varus and valgus stresses. At this point I was satisfied with these implants these were then verified and opened on the back table size 4 tibia size 4 femur size 11 mm polythickness. We did confirm appropriate gap balancing and stresses as well as alignment utilizing her Justin and were satisfied with this plan. At this point time with my trials in place I then towel clip the patella everted this made appropriate measurements subsequently utilizing freehand technique performed by patellar resurfacing this was confirmed to be appropriate resection and subsequently sized to be a 32 mm. My drill peg guides were then clamped and appropriate position and appropriate position in the patella for appropriate tracking and parallel with the joint. Pegs were drilled trial implant was placed and the knee was then subsequently ranged and found to have excellent patellar tracking. At this point time all of our trial implants were removed. The wound bed bone was thoroughly dried and prepped for cementation. Cement was mixed on the back table. Once cement was ready this was then covered onto the tibia and the tibial baseplate was then impacted and all excess cement was removed. Next the polyethylene was then impacted into place and the tibial baseplate. Next cement was placed onto the femur as well as under the femur implants and impacted in to place and all excess cement was extruded. Knee was taken into full extension to clear all excess cement was removed. Warm saline was placed over the joint. I then tell clip cement and cemented the patella into place. This was all clamped and the cement was allowed to cure. Thorough irrigation performed with pulse lavage. I then placed my periarticular injection while the cement was curing. Once cured the knee was taken through range of motion and had excellent stability. Tourniquet was then deflated. Once tourniquet was deflated hemostasis satisfactory with electrocautery. Next I then subsequently closed the capsule with Ethibond suture as well as a running strata fix suture. He was then taken through range of motion 30 times. Next the skin was then closed in layered fashion utilizing running strata fix sutures for deep subcu as well as superficial and a Monocryl strata fix suture was used for the skin. He was closed in flexion and Prineo glue was then placed over the incision this allowed to cure. Incision was covered with ABDs soft roll and Carlo wrap. Patient was then awakened from anesthesia and taken to PACU in stable condition. Disposition: Patient taken to PACU in stable condition will be admitted to the floor for pain control PT/OT weight-bear as tolerated left lower extremity dressing changes as needed, DVT prophylaxis. Patient will be seen today by the internal medicine team for medical management. Patient will follow up with the office in 2 weeks. Patient understands agrees with current plan. All questions answered.
--- NOTE | 2022-09-08 10:47 | PM.PN ---
Vitals/I&O/Wt Last Vital Signs Temp 97.1 F L 09/08/22 10:29 Pulse 81 09/08/22 10:30 Resp 17 09/08/22 10:30 BP 114/71 09/08/22 10:30 Pulse Ox 94 09/08/22 10:30 O2 Del Method 09/08/22 10:30 09/07/22 09/08/22 09/08/22 22:59 06:59 14:59 Intake Total 100 / 100 1260 / 1260 Output Total 50 / 50 Balance 100 / 100 1210 / 1210 Data : 08/31/22 14:45 08/31/22 14:45 Coding Level of Care Code Acute Second Operator for Chg Annie
[2022-09-08] MEDS: sodium chloride 0.9% 1,000 ML 100 ML IV (11:09)
--- NOTE | 2022-09-08 11:48 | PM.CONSULT ---
Providers/Reason For Consult Consulting Physician/Specialty*: Hospitalist Reason for Consult*: Postop management Attending Physician: Heriberto Valverde DO Primary Care Provider: Jer Rodrigues MD History of Present Illness History of Present Illness Catrachito Phillips JR is a 56 year old male who is PO day 0 status post knee surgery, hospitalist service has been consulted for medical management postoperatively. Patient is stating that he does not take any medication at home other than painkillers. No history of CHF, [place], coronary disease he does not drink alcohol daily basis, not an active smoker. Not complaining of pain at this point Is comfortable hemodynamically stable. Review of Systems Const: Denies: fever(s) Eyes: Denies: change in vision ENMT: Denies: throat pain Card: Denies: chest pain Resp: Denies: dyspnea GI: Denies: abdominal pain : Denies: flank pain Musc: Reports: extremity pain Skin/Breast: Denies: rash Neuro: Denies: headache(s) Psych: Denies: anxiety Endo: Denies: polyuria Jag/Lymph: Denies: easy bruising All/Imm: Denies: urticaria Medications/Allergies Home Medications Medication Instructions Recorded Confirmed Last Taken Type meloxicam 15 mg tablet 15 mg PO DAILY 06/10/22 09/08/22 08/29/22 History oxycodone 5 mg tablet 5 mg PO Q4H PRN Moderate Pain #20 09/09/22 Unknown Rx tabs Allergies Allergy/AdvReac Type Severity Reaction Status Date / Time codeine AdvReac Intermediate nausea Verified 09/08/22 05:43 PFSH Acute PFSH: Medical History Carpal tunnel syndrome Carpal tunnel syndrome, bilateral Cubital tunnel syndrome, bilateral Left knee DJD Right knee DJD Surgical History (Updated 09/09/22 @ 10:01 by Regi Reeves MD) History of carpal tunnel surgery Family History (Updated 09/09/22 @ 10:02 by Regi Reeves MD) Denies family history of CAD (coronary artery disease) Social History (Updated 09/09/22 @ 10:02 by Regi Reeves MD) Smoking and tobacco status: never smoked Substance/Drug Use: never Vitals/I&O/Wt Last Vital Signs Temp 97 F L 09/08/22 10:47 Pulse 77 09/08/22 10:47 Resp 16 09/08/22 10:47 BP 119/63 09/08/22 10:47 Pulse Ox 94 09/08/22 10:47 O2 Del Method 09/08/22 10:47 09/07/22 09/08/22 09/08/22 22:59 06:59 14:59 Intake Total 100 / 100 1260 / 1260 Output Total 50 / 50 Balance 100 / 100 1210 / 1210 Physical Exam Narrative: Awake and alert Pleasant and cooperative Currently on room Hemodynamically stable Left leg wrapped in dressing No sign of vascular compromise S1, S2 Abdomen soft Doing well on room air Data 09/09/22 05:00 09/09/22 05:00 A&P Assessment and plan (1) Right knee DJD: (2) Left knee DJD: Plan Left total knee arthroplasty Postop day 0 No postop complication We will do Eliquis for DVT prophylaxis Opioids along bowel regimen Will advance diet around dinnertime Plan to discharge him tomorrow PT Consult Attestations Medical Necessity Statement: Discharge tomorrow as per orthopedic Time Spent in Patient Care: 30 Coding Level of 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
[2022-09-08] MEDS: acetaminophen 500 mg Tablet 1000 MG PO ×2 (14:12→21:08)
[2022-09-08] MEDS: chlorhexidine gluconate 0.12% Btl 473 mL 30 ML MUCOUS MEM ×2 (14:13→17:36)
--- NOTE | 2022-09-08 14:48 | ANE.PACU2 ---
Inpatient post-anesthesia follow up: Airway intact: Yes Vital signs: Temperature 97 F Pulse Rate 68 Respiratory Rate 16 Blood Pressure 119/63 Pulse Oximetry 95 Oxygen Delivery Me thod Room Air Oxygen Flow Rate Fraction of Inspir ed Oxygen Hydration adequate: Yes Nausea and vomiting: No Pain level: 1 Mental status: Baseline
[2022-09-08] MEDS: iron polysaccharide complex 150 mg Capsule PO (17:36)
[2022-09-08] MEDS: calcium carbonate 500 mg Chew Tablet 1000 MG PO (17:36)
[2022-09-08] MEDS: mupirocin oint 22 gm 1 APPLIC NASAL (17:37)
[2022-09-08] MEDS: TRAMadol 50 mg Tablet PO (17:47)
[2022-09-08] MEDS: apixaban 5 mg Tablet 2.5 MG PO (21:07)
[2022-09-08] MEDS: oxyCODONE 5 mg IR Tab/Cap PO (23:30)
[2022-09-09 05:00] VITALS: BP 104/63; PULSE 62; RESP 19; TEMP 36.5; O2SAT 99
[2022-09-09 05:25] LABS: Basophils % 0.1 %; Hematocrit 40.1 % (42.0-52.0); Hemoglobin 13.8 g/dL (11.7-16.6); Lymphocytes # 1.1 10^3/uL (0.8-4.8); Lymphocytes % 7.7 %; Mean Corpuscular HGB Conc 34.4 g/dL (30.0-36.0); Mean Corpuscular Hemoglobin 32.5 pg (28.0-34.0); Mean Corpuscular Volume 94.4 fl (80-94); Mean Platelet Volume 9.5 fL (7.4-10.4); Monocytes # 1.2 10^3/uL (0.2-0.9); Monocytes % 8.6 %; Neutrophils # 11.68 10^3/uL (1.8-7.7); Neutrophils % 83.2 %; Nucleated Red Blood Cells % 0 %; Platelet Count 210 10^3/cmm (130-400); Red Blood Count 4.25 10^6/uL (4.1-5.3); Red Cell Distribution Width 12.1 % (12.1-15.1)
[2022-09-09 05:42] LABS: Anion Gap 12.2 (5-19); Blood Urea Nitrogen 8 mg/dL (6-20); Carbon Dioxide 28 mmol/L (22-29); Chloride 103 mmol/L (98-107); Glomerular Filtration Rate 117.5 mL/min (90-130); Glucose 101 mg/dL (65-115); Osmolality Calculated 286 mOsm/kg (285-295); Potassium 4.2 mmol/L (3.5-5.1); Sodium 139 mmol/L (136-145)
[2022-09-09] MEDS: acetaminophen 500 mg Tablet 1000 MG PO (06:16)
[2022-09-09] MEDS: ceFAZolin 2,000 MG in sodium chloride 0.9% (plus) 50 ML 100 MG IV (06:17)
[2022-09-09 07:30] VITALS: BP 113/64; PULSE 59; RESP 15; TEMP 36.4; O2SAT 97
[2022-09-09 07:38] VITALS: RESP 18
[2022-09-09] MEDS: sennosides-docusate Tablet 2 TAB PO (07:38)
[2022-09-09] MEDS: oxyCODONE 5 mg IR Tab/Cap PO (07:38)
[2022-09-09] MEDS: chlorhexidine gluconate 0.12% Btl 473 mL 30 ML MUCOUS MEM (07:39)
[2022-09-09] MEDS: mupirocin oint 22 gm 1 APPLIC NASAL (07:39)
[2022-09-09] MEDS: multivitamin therapeutic Tablet 1 TAB PO (07:39)
[2022-09-09] MEDS: cholecalciferol (vitamin D3) 1,000 unit Tablet 1000 UNIT PO (07:39)
[2022-09-09] MEDS: iron polysaccharide complex 150 mg Capsule PO (07:39)
[2022-09-09] MEDS: calcium carbonate 500 mg Chew Tablet 1000 MG PO (08:58)
[2022-09-09] MEDS: aspirin 325 mg Tablet PO (08:58)
[2022-09-09 09:37] VITALS: PULSE 59; RESP 18; O2SAT 97
--- NOTE | 2022-09-09 11:01 | P.DS_ITS ---
Discharge Providers Date of Admission: 09/08/22 09:27 Date of Discharge: September 09, 2022 Attending Provider at Admission: Heriberto Valverde DO Attending Provider at Discharge: Heriberto Valverde DO Primary Care Provider: Jer Rodrigues MD Diagnoses at Discharge Discharge Diagnosis (1) Right knee DJD: Status: Acute (2) Left knee DJD: Status: Acute Reason for Visit Reason for Visit: G56.00 Brief History: Failure of conservative treatment of left knee degenerative joint disease requiring left total knee arthroplasty Hospital Course Hospital Course Patient is a well-known patient to my service he is underwent bilateral carpal tunnel and cubital tunnel releases. He subsequently was seen and evaluated for his chronic bilateral knee pain left has been significantly worse than the right. He has been worked up by these in the past has had arthroscopy procedures as well as multiple injections as well as most recently has had stem cell injections. X-rays show [id number] arthritis in the outpatient setting. We talked about his treatment options and at this point time through shared decision making given his failure of conservative treatment would like to proceed with total knee arthroplasty. He was seen by his primary care physician our anesthesia department and medically optimized and cleared to proceed with left total knee arthroplasty. He is brought in through our surgical department and preop operative demise and cleared for surgery he subsequently underwent a left total knee arthroplasty-Justin without any complications. He was taken to PACU in stable condition. He was then admitted to the hospital on the floor. He received appropriate pain control as well as perioperative antibiotics and DVT prophylaxis. He was seen evaluated and advanced extremely well for therapy department. Internal medicine was consulted for medical management he was on postop day 1 he was seen and evaluated by myself as well as the internal medicine and was cleared for discharge. Patient's labs were monitored postop day 1. Once cleared by therapy as well as worked with case management for discharge planning patient was subsequently discharged home. He will follow-up with me in my office in 2 weeks. No complications or issues during his hospitalization. Patient given appropriate discharge instructions. Physical Exam Narrative: Examination of left lower extremity demonstrates Carlo wrap on in place. He is able to wiggle toes plantarflex and dorsiflex ankle distal pulses palpable sensation tact light touch distally at SPN/DPN/tibial/saphenous/sural nerve distribution. Normal tenderness to palpation about the left knee he is able to flex to 90 degrees with minimal discomfort. Calfs are supple and nontender. Compartment soft compressible. Discharge Data Studies Completed and Pending Completed Studies During Hospitalization Category Date Time Status XR knee LT 1-2V 11405 Routine Exams 09/08/22 10:01 Completed Pending at discharge Category Date Time Status Basic Metabolic Panel AM LABS Lab 09/10/22 04:00 Ordered Basic Metabolic Panel AM LABS Lab 09/11/22 04:00 Ordered Complete Blood Count w/Auto AM LABS Lab 09/10/22 04:00 Ordered Complete Blood Count w/Auto AM LABS Lab 09/11/22 04:00 Ordered Radiology Impressions Knee X-Ray 09/08/22 10:01 IMPRESSION: 1. Total knee arthroplasty in excellent position. Laboratory Results WBC 14.0 10^3/uL (4.0-10.0) H 09/09/22 05:00 RBC 4.25 10^6/uL (4.1-5.3) 09/09/22 05:00 Hgb 13.8 g/dL (11.7-16.6) 09/09/22 05:00 Hct 40.1 % (42.0-52.0) L 09/09/22 05:00 MCV 94.4 fl (80-94) H 09/09/22 05:00 MCH 32.5 pg (28.0-34.0) 09/09/22 05:00 MCHC 34.4 g/dL (30.0-36.0) 09/09/22 05:00 RDW 12.1 % (12.1-15.1) 09/09/22 05:00 Plt Count 210 10^3/cmm (130-400) 09/09/22 05:00 MPV 9.5 fL (7.4-10.4) 09/09/22 05:00 Neut % (Auto) 83.2 % 09/09/22 05:00 Lymph % (Auto) 7.7 % 09/09/22 05:00 [place] % (Auto) 8.6 % 09/09/22 05:00 Eos % (Auto) 0.0 % 09/09/22 05:00 Baso % (Auto) 0.1 % 09/09/22 05:00 Neut # (Auto) 11.68 10^3/uL (1.8-7.7) H 09/09/22 05:00 Lymph # (Auto) 1.1 10^3/uL (0.8-4.8) 09/09/22 05:00 [place] # (Auto) 1.2 10^3/uL (0.2-0.9) H 09/09/22 05:00 Eos # (Auto) 0.0 10^3/uL (0.0-0.8) 09/09/22 05:00 Baso # (Auto) 0.0 10^3/uL (0.0-0.1) 09/09/22 05:00 Nucleated RBC % (auto) 0 % 09/09/22 05:00 Nucleated RBCs # 0.0 /100WBC 09/09/22 05:00 PT 13.70 SECONDS (12.1-14.9) 08/31/22 14:45 INR 1.02 (0.8-1.2) 08/31/22 14:45 Sodium 139 mmol/L (136-145) 09/09/22 05:00 Potassium 4.2 mmol/L (3.5-5.1) 09/09/22 05:00 Chloride 103 mmol/L (98-107) 09/09/22 05:00 Carbon Dioxide 28 mmol/L (22-29) 09/09/22 05:00 Anion Gap 12.2 (5-19) 09/09/22 05:00 BUN 8 mg/dL (6-20) 09/09/22 05:00 Creatinine 0.7 mg/dL (0.7-1.2) 09/09/22 05:00 GFR Calculation 117.5 mL/min (90-130) 09/09/22 05:00 Glucose 101 mg/dL (65-115) 09/09/22 05:00 Calculated Osmolality 286 mOsm/kg (285-295) 09/09/22 05:00 Calcium 9.0 mg/dL (8.5-10.5) 09/09/22 05:00 Total Bilirubin 0.3 mg/dL (0.15-1.2) 08/31/22 14:45 AST 18 U/L (0-40) 08/31/22 14:45 ALT 18 U/L (0-41) 08/31/22 14:45 Alkaline Phosphatase 72 U/L (40-130) 08/31/22 14:45 Total Protein 7.2 g/dL (6.6-8.7) 08/31/22 14:45 Albumin 4.3 g/dL (3.5-5.2) 08/31/22 14:45 Globulin 2.9 g/dL (1.3-4.6) 08/31/22 14:45 Urine Color Yellow (Yellow) 08/31/22 15:00 Urine Appearance Clear (CLEAR) 08/31/22 15:00 Urine pH 5 (5-7) 08/31/22 15:00 Ur Specific [place] 1.010 (1.005-1.030) 08/31/22 15:00 Urine Protein Neg (Negative) 08/31/22 15:00 Urine Glucose (UA) Norm (Normal) 08/31/22 15:00 Urine Ketones Negative (Negative) 08/31/22 15:00 Urine Blood Neg (Negative) 08/31/22 15:00 Urine Nitrate Negative (Negative) 08/31/22 15:00 Urine Bilirubin Neg (Negative) 08/31/22 15:00 Urine Urobilinogen Neg mg/dL (Negative) 08/31/22 15:00 Ur Leukocyte Esterase Negative (Negative) 08/31/22 15:00 Blood Type A Negative 09/08/22 05:59 Rho(D) Type Negative 09/08/22 05:59 Antibody Screen Negative 09/08/22 05:59 Imaging Xray Ortho: Radiologist's impression: Postoperative x-rays demonstrate a stable left total knee arthroplasty. Procedures Performed Left total knee arthroplasty?Justin Vitals Last Vital Signs Temp 97.5 F L 09/09/22 07:30 Pulse 59 L 09/09/22 09:37 Resp 18 09/09/22 09:37 BP 113/64 09/09/22 07:30 Pulse Ox 97 09/09/22 09:37 O2 Del Method 09/09/22 09:37 Discharge Plan Discharge Patient Disposition: Home Condition: Stable Prescriptions: New aspirin 325 mg Tablet 325 mg PO BID Qty: 30 0RF Stool Softener-Laxative 8.6-50 mg Tablet 2 tab PO BID Qty: 30 0RF acetaminophen 500 mg Tablet 500 mg PO Q8H Qty: 90 0RF oxycodone 5 mg Tablet 5 mg PO Q4H PRN (Reason: Moderate Pain) Qty: 20 0RF Continued meloxicam 15 mg tablet 15 mg PO DAILY Discharge Orders: Discharge Order (Routine); Ordered 09/09/22 Ordered By: Regi Reeves Other Ambulatory Orders: Physical Therapy Eval and Treat Outpatient (Order) Timeframe: 3 Weeks Facility: [facility] - Location: Physical Therapy Ordered By: Regi Reeves Referrals: [facility] [Other] ([facility] has the orders to arranged our outpatient physical therapy. If you haven't heard from them by 09/13/22 please contact them at [phone].) Heriberto Valverde DO [Physician] - 2 weeks (appointment time scheduled : September 24, 2022 at time of 09:45 am . please arrive 15 mts. early .) Discharge Diet: Advance as tolerated Discharge Activity: Increase activity as tolerated Patient Instructions: Acetaminophen (By mouth), Aspirin (By mouth), Laxative, Stool Softeners (By mouth) (Doculax, Colace, Colace Clear, DSS), Oxycodone, Rapid Release (By mouth), Knee Replacement (DC), Operative Knee Arthroscopy (DC), Opioid Safety Activity Restrictions/Additional Instructions: Orthopedic discharge instructions: Weightbearing as tolerated to the left lower extremity Take down dressing after 48 to 72 hours then may shower and rinse incision. No baths or soaks. Do not peel glue to mesh that is on skin. This should remain on in place and will fall off over time. Pat incision dry after shower and may cover with a dry dressing. Range of motion as tolerated to the left knee Take pain medication as prescribed Take aspirin 325 mg twice daily for blood clot prevention Stool softener as needed for constipation Follow-up with Dr. Valverde in in 2 weeks Contact the office for any questions or concerns Discharge Attestations Time Spent in Discharge Care*: greater than 30 min Quality Metrics Clinical Quality Measures [ No reported AMI, CVA or VTE this stay] Coding Level of Care Code Acute Chg FW DC note Diagnoses Right knee DJD M17.11 Left knee DJD M17.12 Time Spent (min) 45
[2022-09-09 11:29] VITALS: BP 112/61; PULSE 64; RESP 18; TEMP 36.4; O2SAT 98
--- NOTE | 2022-09-09 12:56 | PC.OT ---
OT EVALUATION ORDERS RECEIVED. PATIENT DISCHARGED BEFORE EVALUATION COULD BE COMPLETED.
== END 2022-09-09 11:39 | disposition home or self-care (01) ==
LOC: MEDSURG 09:27
PROVIDERS: Admitting Provider Student in an Organized Health Care Education/Training Program; PCP Family Medicine; Visit Provider Student in an Organized Health Care Education/Training Program
PROC: 8E0Y0CZ Robotic Assisted Procedure of Lower Extremity, Open Approach (ICD-10-PCS; CPT 27447; principal; 2022-09-08 07:00)
DX: M17.12 Unilateral primary osteoarthritis, left knee (principal)
CPT/HCPCS: 27447; 36415; 73560; 80048; 80053; 81003; 85025; 85610; 86850; 86900; 97110; 97116; 97161; C1713; C1776; G0378; J0131; J0171; J0690; J1100; J1885; J2250; J2704; J2795; J3010; J3490; J7030

== ENCOUNTER 2022-09-15 06:00 | Outpatient (RCR) | payer OTHER, SELFPAY | END 2022-09-22 23:59 | disposition home or self-care (01) | LOC: SPT 06:00 | PROVIDERS: PCP Family Medicine; Visit Provider Student in an Organized Health Care Education/Training Program | DX: Z96.652 Presence of left artificial knee joint (principal) | CPT/HCPCS: 97110; 97162 ==

== ENCOUNTER 2022-09-23 06:00 | Outpatient (RCR) | payer OTHER, SELFPAY | END 2022-10-11 16:52 | disposition home or self-care (01) | LOC: SPT 06:00 | PROVIDERS: PCP Family Medicine; Visit Provider Student in an Organized Health Care Education/Training Program | DX: Z96.652 Presence of left artificial knee joint (principal) | CPT/HCPCS: 97110 ==

== ENCOUNTER → 2022-09-24 09:38 | Outpatient (BNVA) | payer OTHER, SELFPAY | PROVIDERS: PCP Family Medicine; Visit Provider Student in an Organized Health Care Education/Training Program | DX: M17.0 Bilateral primary osteoarthritis of knee (principal) | CPT/HCPCS: 73560; 73565 ==

== ENCOUNTER 2022-10-06 14:18 | Outpatient (CLI) | payer OTHER, SELFPAY ==
--- NOTE | 2022-10-06 14:30 | CT_ITS ---
WS: [id number] CT RIGHT KNEE, NONCONTRAST TECHNIQUE: Noncontrast CT of the RIGHT knee to include the RIGHT hip and ankle. CLINICAL INFORMATION: Right Knee Total [place] COMPARISON: None. DLP: 966.[address] scans at [facility] use at least one of these dose optimization techniques: automated e xposure control; mA and/or kV adjustment per patient size (includes targeted exams where dose is matc hed to clinical indication); or iterative reconstruction. FINDINGS: Moderate to advanced joint space narrowing medial joint compartment RIGHT knee. Moderate narrowing at the patellofemoral articulation. Small suprapatellar effusion. Hypertrophic spurring along the joint line. Prior postoperative changes LEFT TKA. Prominent prostate measuring 4.[address]/CT knee RT [place] IMPRESSION: Images obtained for preoperative purposes.
== END 2022-10-06 14:19 | disposition home or self-care (01) ==
LOC: RAD 14:19
PROVIDERS: PCP Family Medicine; Visit Provider Student in an Organized Health Care Education/Training Program
DX: M17.11 Unilateral primary osteoarthritis, right knee (principal); Z01.818 Encounter for other preprocedural examination
CPT/HCPCS: 73700

== ENCOUNTER 2022-10-13 12:08 | Observation (INO) | payer OTHER, SELFPAY ==
[2022-10-06 11:20] VITALS: BMI 24.5
[2022-10-13] VITALS (28 sets, daily range): BP systolic 95–135; BP diastolic 58–79; PULSE 68–116; RESP 7–22; TEMP 36.6–37.4; O2SAT 91–98
--- NOTE | 2022-10-13 07:05 | W.PM.OPSUD ---
Surgery/Procedure H&P Update DATE OF PROCEDURE: October 13, 2022 DATE H&P PERFORMED: 09/24/22 CHANGES TO PREVIOUS DOCUMENTATION: None Patient seen and examined this morning. I did have a detailed discussion with him and did speak with his therapist this week about his progression in therapy for his left total knee arthroplasty. He is reached a plateau in his range of motion since our last visit and is maintained roughly around 110 degrees. At this point time we talked about while he is getting his right total knee done performing a left knee manipulation under anesthesia just to help assist him in his range of motion and recovery of his left total knee arthroplasty. Given will already be under anesthesia and he is really reached a plateau and feels though he is blocking from soft tissue getting his flexion feel a manipulation would help him in his recovery of his total knee as well as continue getting him the final flexion he had intraoperatively for his left total knee arthroplasty. Through shared decision-making he agrees to proceed with surgical intervention. He will be consented for a right total knee arthroplasty utilizing Justin and a left knee manipulation under anesthesia. All questions been answered this time. He understands risk benefits complication alternatives to surgical treatment options. He elects proceed with surgery. PREOP DIAGNOSIS: Right knee degenerative joint disease, left knee arthrofibrosis status post PRIMARY INDICATION FOR PROCEDURE: Right knee degenerative joint disease, left knee arthrofibrosis status post left total knee arthroplasty. PLANNED PROCEDURE: Operation Date: 10/13/22 08:15 Proposed Procedures p Total Right Knee Justin 51156 M17.1(Right) - Heriberto Valverde DO
[2022-10-13] MEDS: ketorolac 30 mg/mL INJ IVP (07:10)
[2022-10-13] MEDS: sodium chloride 0.9% 1,000 ML 30 ML IV (07:11)
[2022-10-13] MEDS: acetaminophen 1,000 MG/100 ML PIGGYBACK 400 MG IV (07:12)
[2022-10-13] MEDS: gabapentin 300 mg Capsule PO (07:13)
--- NOTE | 2022-10-13 07:37 | ANES.PREANE2 ---
Pre-Anesthetic Assessment Height/Weight: Height 1.78 m Weight 77.564 kg Temp Pulse Resp BP Pulse Ox O2 Del Method 98.4 F 98 17 105/77 95 10/13/22 06:47 10/13/22 06:47 10/13/22 06:47 10/13/22 06:47 10/13/22 06:47 10/13/22 06:51 Preop Diagnosis: Right knee degenerative joint disease, left knee arthrofibrosis status post Operation Date: 10/13/22 08:15 Proposed Procedures p Total Right Knee Justin [id number] M17.1(Right) - Heriberto Valverde DO Familial anesthetic complications: none Was Beta Mery taken within 24 hours: N/A Was Clonidine taken within 24 hours: N/A Last intake: Intake Last Liquid Date 10/12/22 Last Liquid Time 21:00 Last Solid Date 10/12/22 Last Solid Time 18:00 Social No alcohol and No tobacco Exam alert, oriented x 3, clear to auscultation bilaterally and regular rate & rhythm Airway Submandibular: within normal limits Cervical ROM: within normal limits Mallampati: Class II Dentition: full Musc/skel Osteoarthritis/DJD Anesthetic Plan ASA status: 2 Anesthesia: General (Pat. had SAB last time and wanted GA this time.) and Regional (specify below) (Right adductor blk) Medications/Allergies Home Medications Medication Instructions Recorded Confirmed Last Taken Type aspirin 325 mg tablet 325 mg PO BID #30 tabs 09/09/22 10/06/22 09/29/22 Rx oxycodone 5 mg tablet 5 mg PO Q4H PRN Moderate Pain 7 09/20/22 10/06/22 10/06/22 Rx days #42 tabs acetaminophen 500 mg tablet 1,000 mg PO Q8H PRN Pain 10/06/22 10/06/22 10/11/22 18:00 History aspirin 81 mg tablet 81 mg PO DAILY 10/06/22 10/13/22 10/12/22 08:00 History calcium carbonate 600 mg calcium 600 mg PO DAILY 10/06/22 10/13/22 10/12/22 08:00 History (1,500 mg) tablet (Calcium) multivitamin-ferrous 1 tab PO DAILY 10/06/22 10/13/22 10/12/22 08:00 History fumarate-folic acid 18 mg-400 mcg tablet (Centrum Complete) Allergies Allergy/AdvReac Type Severity Reaction Status Date / Time codeine AdvReac Intermediate nausea Verified 10/13/22 06:48 Current Medications Generic Name Dose Route Start Last Admin Trade Name Edith PRN Reason Stop Dose Admin Sodium Chloride 1,000 mls @ 30 mls/hr 10/13/22 06:45 10/13/22 07:11 Sodium Chloride 0.9% IV 10/14/22 06:44 30 mls/hr .Q24H RADHA Administration PFSH Anesthesia Medical History Carpal tunnel syndrome Carpal tunnel syndrome, bilateral Cubital tunnel syndrome, bilateral Left knee DJD Right knee DJD Surgical History History of carpal tunnel surgery Family History Denies family history of CAD (coronary artery disease) Social History Smoking and tobacco status: never smoked Data Anesthesia Cardiac Studies: No Data to Display
[2022-10-13] MEDS: ceFAZolin 2,000 MG in sodium chloride 0.9% (plus) 50 ML 100 MG IV ×2 (07:52→16:22)
--- NOTE | 2022-10-13 08:32 | ANES.PROC ---
Anesthesia Procedures Procedure/Date: 10/13/22 Nerve Block ^: Nerve Block 1: Main Anesthesia: general anesthesia Time Out Performed: Yes Consent: requested by attending/covering physician, from patient, risks and benefits reviewed and patient agrees to proceed Nerve block location: adductor canal (right) Anesthesia monitors applied: pulse oximetry, EKG, BP cuff and oxygen Nerve block position: supine Anesthetic Used: ropivicaine 0.5% Amount of anesthesia used (mL): 20 Ultrasound used to: recognize landmarks Nerve Stimulator Used?: No Interscalene/Femoral BLK: 4 stimuplex 21 g needle used for position and inplane approach Injection: neg aspiration of heme Patient Tolerated Procedure: well Complications: none
[2022-10-13] MEDS: tranexamic acid 1,000 mg/10mL SDV 1000 MG IV (08:35)
[2022-10-13] MEDS: EPINEPHrine 1 mg/mL INJ XX (09:17)
[2022-10-13] MEDS: ketorolac 30 mg/mL INJ XX (09:17)
[2022-10-13] MEDS: tranexamic acid 1,000 mg/10mL SDV 1000 MG XX (09:17)
--- NOTE | 2022-10-13 10:40 | P.OP_ITS ---
Brief Operative Note Date of procedure: 10/13/22 Pre-op diagnosis: Left knee arthrofibrosis, right knee degenerative joint dise ase failed cons Post-op diagnosis: same Procedure Done: Right total knee arthroplasty-Justin Left knee manipulation under anesthesia Surgeon: Heriberto Valverde Estimated blood loss (mL): 50 Complications: None Post-op Plan: Patient taken to PACU in stable condition. Patient recovering well. Will receive appropriate discharge instructions as well as pain medication DVT prophylaxis postoperatively. Patient will be admitted to the floor. Patient received appropriate postoperative pain medication, antibiotics, TXA, weightbearing as tolerated to the right lower extremity as well as left lower ex tremity. PT/OT. DVT prophylaxis. We will see me in office in 2 weeks. Condition: stable Disposition: floor Coding Level of Care Code Acute Business Intelligence Consultant for Mark Valencia
--- NOTE | 2022-10-13 10:42 | PM.PACU ---
PACU note Narrative: Patient taken to PACU in stable condition. Dressings on in place and clean dry and intact. Patient is able to wiggle toes, plantarflex and dorsiflex ankle. Sensation intact to light touch distally. Patient states is relief and motion of the left knee. Distal pulses are palpable. Exam: awake Disposition: admitted
--- NOTE | 2022-10-13 10:42 | PM.OP ---
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 Procedure done: Right total knee arthroplasty?Justin Left knee manipulation under anesthesia Implants: [place] triathlon universal tibial baseplate size 4 [place] triathlon cruciate retaining femoral size 4 [place] triathlon polyethylene 11 mm thickness size 4 tibia Joaquim triathlon asymmetric poly 32 mm Antibiotic Simplex [place] bone cement Surgeon: Heriberto Valverde DO Estimated blood loss: 50 mL 83min IV fluids: See anesthesia record Complications: None Findings: See operative report narrative Condition: stable Disposition: floor Brief History: Patient is well-known to my service and has been seen and evaluated for bilateral degenerative joint disease of his knees. Patient has failed exhaustive conservative treatment of the bilateral knees. He subsequently underwent a left total knee arthroplasty 5 weeks ago. He is failed conservative treatment of the right knee and at this point in time through shared decision making he elects to proceed with surgical intervention of a right total knee arthroplasty. He understands the risks, benefits, alternatives, complications to surgical intervention. Understanding his risks with surgery he agrees to proceed with surgical intervention of right total knee arthroplasty. During his postoperative recovery of his left total knee arthroplasty he has already improved his range of motion than what his knee was prior however given his young age I do feel he would benefit from regaining as much motion as possible and since he is already under anesthesia we could accelerate his rehabilitation process by undergoing a left knee manipulation under anesthesia as he has plateaued at roughly 105-110 degrees in therapy. I discussed this with his therapist as well as the patient in detail and at this point in time through shared decision making he agrees to proceed with left knee manipulation under anesthesia prior to right total knee arthroplasty. Understanding the risk benefits complications alternatives to this part of the procedure he agrees to proceed. Consent was obtained in the preoperative holding area. He elects to proceed with surgical intervention of the left knee manipulation under anesthesia and a right total knee arthroplasty. Patient understands and agrees with current plan. All questions answered. Procedure: Patient was seen and evaluated in the preoperative holding area. Consent was reviewed and signed with patient with plan for left knee manipulation under anesthesia and right total knee arthroplasty. All questions answered. Correct extremities marked. Patient seen and evaluated by the anesthesia department and once cleared for surgery was taken back to the operative suite. Patient was placed into a supine position on the OR table. All bony prominences were well-padded. Patient was appropriately secured to the bed. Patient underwent anesthesia per the anesthesia department. A nonsterile tourniquet was applied to the right thigh. At this point in time a final timeout performed. Patient received appropriate preoperative antibiotics. First part of the procedure was left knee manipulation under anesthesia. Patient's left knee was evaluated he is able to achieve full extension with 0 degrees. Patient's assessment range of motion prior to manipulation was 0 to 95 degrees. Once patient was appropriately relaxed and ready for manipulation per anesthesia I then utilizing a short lever arm around the knee with just gentle manipulation under anesthesia of the knee slowly added patient's flexion with palpable releases of scar tissue in his adhesions along the patella and regained patient's range of motion to greater than 125 degrees. End arc range of motion was 0 to 125 degrees. He underwent this manipulation without any complications or issues. This completed the portion of the left knee manipulation under anesthesia. Next the right lower extremity was then prepped and draped in standard orthopedic fashion. Once again the final timeout performed and patient received appropriate preoperative antibiotics as well as TXA.Esmarch tourniquet was used exsanguinate the right lower extremity.? Tourniquet was insufflated to 300 mmHg. A standard anterior incision was made over midline of the knee.? Sharp scalpel excision through skin and subcutaneous tissue full-thickness skin flaps were made.? Fascia was elevated off of the extensor retinaculum was stable with medial parapatellar arthrotomy was then made.? The performed standard sequential releases with a medial release was patient had a varus deformity.? Next the the patella was then stuffed and the knee was then flexed.? Aisha was placed superiorly around the anterior aspect of the femur this was freed of synovium and I subsequently then placed by 2 femur pins to establish my femur arrays for the Opbeat robot.? These were then placed bicortically and by femur rate was then appropriately secured with appropriate visualization.? Next attention was turned towards the tibial rays.? These were then drilled sequentially bicortically in parallel fashion and intraincisional.? I then placed my guide as well as my tibial array on in place.? This was appropriately secured and had excellent visualization with the Opbeat robot.? Next the tibial checkpoint as well as femur checkpoint were then placed.? At this point time I then subsequently established my head center as well as my medial lateral malleoli as well as my checkpoints.? Next utilizing standard Opbeat technology I then mapped out the appropriate points and confirmation points around the femur as well as the tibia in standard fashion.? Once this was then done I then removed all osteophytes in preparation for dynamic testing.? All osteophytes were removed as well as I removed the ACL and left the PCL intact.? At this point time the knee was brought into full extension and we performed our standard evaluation of our gap balancing stressing his ligaments and extension as well as flexion appropriate adjustments were made to have appropriate gap balancing in both flexion and extension.? This plan for final counts.? We get a preoperative plan evaluating our implants which was a size 4 femur and a size 4 tibia.? Next we brought in the Justin robot and sequentially made our femur cuts.? All excess bony cuts were then removed.? Finally we made our tibial cut.? Once this was done a standard PCL retractor was then placed into this position I excised the medial and lateral meniscus.? The tibial cut was then subsequently removed all excess bony debris was removed.? I then utilized a lamina communications programmer and remove the posterior osteophytes.? At this point time sized the tibia and confirmed this was a size 4.? I utilized our blunt probe to establish rotation of tibial implant.? Once this was done I then placed my tibia size 4 trial in appropriate position and then subsequently placed tibial pins to hold this into place placed a size 9 mm poly as well as a size 4 femur which was appropriately impacted in place knee was then subsequently brought into extension.? Slight hyperextension was then subsequently noted.? I increased my policy thickness to 11 mm and this was stable with varus valgus stress.? Bringing up into flexion this did feel slightly tight.? Then utilizing electrocautery performed a standard PCL release as we were using ultracongruent tibial polyethlene.? Once this was done I had excellent balance gaps in flexion and extension with varus and valgus stresses.? At this point I was satisfied with these implants these were then verified and opened on the back table size 4 tibia size 4 femur size 11 mm polythickness.? We did confirm appropriate gap balancing and stresses as well as alignment utilizing Justin and were satisfied with this plan.? At this point time with my trials in place I then towel clip the patella everted this made appropriate measurements subsequently utilizing freehand technique performed by patellar resurfacing this was confirmed to be appropriate resection and subsequently sized to be a 32 mm.? My drill peg guides were then clamped and appropriate position and appropriate position in the patella for appropriate tracking and parallel with the joint.? Pegs were drilled trial implant was placed and the knee was then subsequently ranged and found to have excellent patellar tracking.? At this point time all of our trial implants were removed. All checkpoints as well as guidepins and arrays were removed and appropriate counts made. The wound bed bone was thoroughly dried and prepped for cementation.? Cement was mixed on the back table.? Once cement was ready this was then covered onto the tibia and the tibial baseplate was then impacted and all excess cement was removed.? Next the polyethylene was then impacted into place and the tibial baseplate.? Next cement was placed onto the femur as well as under the femur implants and impacted in to place and all excess cement was extruded.? Knee was taken into full extension? to clear all excess cement was removed.? Warm saline was placed over the joint.? I then tell clip cement and cemented the patella into place.? This was all clamped and the cement was allowed to cure.? Thorough irrigation performed with pulse lavage.? I then placed my periarticular injection while the cement was curing.? Once cured the knee was taken through range of motion and had excellent stability and gaps balances.? Tourniquet was then deflated.? Once tourniquet was deflated hemostasis satisfactory with electrocautery.? Next I then subsequently closed the capsule with Ethibond suture as well as a running strata fix suture.? He was then taken through range of motion 30 times.? Next the skin was then closed in layered fashion of interrupted deep 0 Vicryl and superficial subcutaneous 2-0 Vicryl suture and 4-0strata fix suture was used for the skin.? He was closed in flexion and Prineo glue was then placed over the incision this allowed to cure.? Incision was covered with ABDs soft roll and Carlo wrap.? Patient was then awakened from anesthesia and taken to PACU in stable condition. Disposition: Patient taken to PACU in stable condition will be admitted to the floor for pain control PT/OT weight-bear as tolerated right lower extremity dressing changes as needed, DVT prophylaxis.? Patient will be seen today by the internal medicine team for medical management.? Patient will follow up with the office in 2 weeks.? Patient understands agrees with current plan.? All questions answered.
--- NOTE | 2022-10-13 10:50 | XR_ITS ---
WS: [id number] Exam: XR knee RT 3V* [id number] Date/Time of Exam: 10/13/2022 10:50 AM Reason For Exam: post tka R Comparison 09/24/2022. A total knee prosthesis has been placed and is in excellent position. Postoperative changes in the ad jacent soft tissues. XR/XR knee RT 3V* [id number] IMPRESSION: 1. Total knee replacement in excellent position.
--- NOTE | 2022-10-13 11:18 | P.CONIM_ITS ---
Providers/Reason For Consult Consulting Physician/Specialty*: Abdias Baker MD Reason for Consult*: Medical Management Requesting Physician: Dr. Valverde Attending Physician: Heriberto Valverde DO Primary Care Provider: Jer Rodrigues MD History of Present Illness History of Present Illness Catrachito Phillips JR is a 56 year old male who came in the hospital today for total knee arthroplasty on the right. He has had quite a few series of surgeries lately including cubital tunnel, carpal tunnel x2, left total knee arthroplasty. From my understanding estimated blood loss was minimal, surgery went without complication. He is alert, oriented, and responsive in the recovery area. He denies any concerns currently. Review of Systems General: Reports: 10 or more systems reviewed and unremarkable except in HPI and below Const: Denies: fever(s) Eyes: Denies: change in vision ENMT: Denies: throat pain Card: Denies: chest pain Resp: Denies: dyspnea GI: Denies: abdominal pain : Denies: flank pain Musc: Reports: extremity pain Skin/Breast: Denies: rash Neuro: Denies: headache(s) Psych: Denies: anxiety Endo: Denies: polyuria Jag/Lymph: Denies: easy bruising All/Imm: Denies: urticaria Medications/Allergies Home Medications Medication Instructions Recorded Confirmed Last Taken Type aspirin 325 mg tablet 325 mg PO BID #30 tabs 09/09/22 10/06/22 09/29/22 Rx oxycodone 5 mg tablet 5 mg PO Q4H PRN Moderate Pain 7 09/20/22 10/06/22 10/06/22 Rx days #42 tabs acetaminophen 500 mg tablet 1,000 mg PO Q8H PRN Pain 10/06/22 10/06/22 10/11/22 18:00 History aspirin 81 mg tablet 81 mg PO DAILY 10/06/22 10/13/22 10/12/22 08:00 History calcium carbonate 600 mg calcium 600 mg PO DAILY 10/06/22 10/13/22 10/12/22 08:00 History (1,500 mg) tablet (Calcium) multivitamin-ferrous 1 tab PO DAILY 10/06/22 10/13/22 10/12/22 08:00 History fumarate-folic acid 18 mg-400 mcg tablet (Centrum Complete) Allergies Allergy/AdvReac Type Severity Reaction Status Date / Time codeine AdvReac Intermediate nausea Verified 10/13/22 06:48 Current Medications Generic Name Dose Route Start Last Admin Trade Name Freq PRN Reason Stop Dose Admin Sodium Chloride 1,000 mls @ 30 mls/hr 10/13/22 06:45 10/13/22 07:11 Sodium Chloride 0.9% IV 10/14/22 06:44 30 mls/hr .Q24H RADHA Administration PFSH Acute PFSH: Medical History (Updated 10/13/22 @ 11:23 by Abdias Baker MD) Carpal tunnel syndrome Carpal tunnel syndrome, bilateral Cubital tunnel syndrome, bilateral Left knee DJD Right knee DJD Surgical History (Updated 10/13/22 @ 11:23 by Abdias Baker MD) History of arthroplasty of knee History of carpal tunnel surgery Family History (Updated 10/13/22 @ 11:21 by Abdias Baker MD) Other Diabetes Hypertension Denies family history of CAD (coronary artery disease) Social History (Updated 10/13/22 @ 11:21 by Abdias Baker MD) Smoking and tobacco status: never smoked Alcohol intake: never Vitals/I&O/Wt Last Vital Signs Temp 98.4 F 10/13/22 06:47 Pulse 98 10/13/22 06:47 Resp 17 10/13/22 06:47 BP 105/77 10/13/22 06:47 Pulse Ox 95 10/13/22 06:47 O2 Del Method 10/13/22 06:51 10/12/22 10/13/22 10/13/22 22:59 06:59 14:59 Intake Total 150 / 150 Balance 150 / 150 Physical Exam Narrative: General exam is a white male, slightly dazed, who is able to answer questions without difficulty HEENT: Atraumatic normocephalic. Pupils equally round Neck is supple no lymphadenopathy or thyromegaly Cardiovascular regular rate rhythm without murmur Lungs clear no wheezing or crackles Abdomen is soft nontender positive bowel sounds Extremities no cyanosis clubbing or edema, dressing present right knee. Able to dorsiflex both feet Skin without rash Neuro no focal deficits. Data Other Labs: Previous lab work from September 09 was reviewed A&P Assessment and plan (1) S/P total knee arthroplasty: Patient directly postoperative total knee arthroplasty on the right Consulted for medical management Close follow-up with the patient with CBC and BMP in the morning to make sure no kidney injury or acute blood loss anemia is detected Pain control Therapy consultation Other plans per orthopedics (2) DJD (degenerative joint disease): As per primary Plan It appears he is on aspirin for DVT prophylaxis for DVT prophylaxis Full code Thank you for this consultation Consult Attestations Medical Necessity Statement: As per primary Coding Level of Care Code Acute Sheeter Operator for Chg Fwd Diagnoses S/P total knee arthroplasty Z96.659 DJD (degenerative joint disease) M19.90
--- NOTE | 2022-10-13 11:25 | PC.NURSE ---
Dr. Baker @ bedside
--- NOTE | 2022-10-13 12:19 | PC.NURSE ---
Report was called to floor nurse. Patient ready to transport. Floor nurse called back to say room not ready. Patient still holding in extended care
[2022-10-13] MEDS: acetaminophen 500 mg Tablet 1000 MG PO (14:44)
[2022-10-13] MEDS: oxyCODONE 5 mg IR Tab/Cap PO (14:45)
--- NOTE | 2022-10-13 15:32 | ANE.PACU2 ---
Inpatient post-anesthesia follow up: Airway intact: Yes Vital signs: Temperature 98.2 F Pulse Rate 102 Respiratory Rate 18 Blood Pressure 115/72 Pulse Oximetry 96 Oxygen Delivery Me thod Room Air Oxygen Flow Rate Fraction of Inspir ed Oxygen Hydration adequate: Yes Nausea and vomiting: No Pain level: 2 Mental status: Baseline
--- NOTE | 2022-10-13 16:08 | PM.DCS ---
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 Hospital Course Hospital Course Patient was brought in and he was taken back to the operative suite and underwent a left knee manipulation under anesthesia and right total knee arthroplasty. Patient tolerated the procedure without complications. He was taken to PACU in stable condition. Once recovered in PACU he was subsequently admitted to the floor. Patient was seen and evaluated on the floor by the internal medicine department and was stable for discharge. Patient was recovering well tolerating diet and pain controlled. He had already gotten up with therapy and walked the hallway multiple times. His vital signs have been stable. Patient tolerating his pain well. He was seen and evaluated by myself postoperatively later in the evening and it was determined on postop day 0 after contacting the hospitalist that he was stable for discharge from their standpoint and from an orthopedic standpoint he is already completed his therapy for him to be discharged safely. At this point time he is given appropriate discharge instructions will follow-up with me in the office in 2 weeks. He was then discharged from the floor in stable condition. Patient received appropriate postoperative antibiotics as well as TXA prior to departure as well as will receive 2 weeks of aspirin 325 twice daily for DVT prophylaxis. Physical Exam Narrative: Patient's left lower extremity had regained in range of motion of 0 to 125 degrees. The right lower extremity had dressings on in place that were clean dry and intact. He already had 0 to 90 degrees and range of motion. Pain controlled with minimal tenderness to palpation of the right knee. Compartments soft and compressible. Distal pulses palpable. Sensation intact to light touch distally to the right lower extremity. Calf soft and nontender. Patient able to ambulate in the hospital room and down the halls. Discharge Data Studies Completed and Pending Completed Studies During Hospitalization Category Date Time Status XR knee RT 3V* [id number] Stat Exams 10/13/22 10:50 Completed Pending at discharge Category Date Time Status Basic Metabolic Panel AM LABS Lab 10/13/22 14:54 Ordered Basic Metabolic Panel AM LABS Lab 10/15/22 04:00 Uncollected Basic Metabolic Panel AM LABS Lab 10/16/22 04:00 Uncollected Complete Blood Count w/Auto AM LABS Lab 10/14/22 04:00 Uncollected Complete Blood Count w/Auto AM LABS Lab 10/15/22 04:00 Uncollected Complete Blood Count w/Auto AM LABS Lab 10/16/22 04:00 Uncollected Radiology Impressions Knee X-Ray 10/13/22 10:50 IMPRESSION: 1. Total knee replacement in excellent position. Vitals Last Vital Signs Temp 98.2 F 10/13/22 12:15 Pulse 102 H 10/13/22 12:15 Resp 18 10/13/22 14:45 BP 115/72 10/13/22 12:15 Pulse Ox 96 10/13/22 12:15 O2 Del Method 10/13/22 13:20 Discharge Plan Discharge Patient Disposition: Home Condition: Good Prescriptions: New ondansetron 4 mg tablet,disintegrating 4 mg PO DAILY 5 Days Qty: 5 0RF Colace 100 mg capsule 100 mg PO DAILY 7 Days Qty: 7 0RF Continued calcium carbonate [Calcium 600] 600 mg calcium (1,500 mg) Tablet 600 mg PO DAILY Centrum Complete 18-400 mg-mcg Tablet 1 tab PO DAILY acetaminophen 500 mg tablet 1,000 mg PO Q8H PRN (Reason: Pain) aspirin 325 mg Tablet 325 mg PO BID 14 Days Qty: 28 0RF oxycodone 5 mg tablet 5 mg PO Q4H PRN (Reason: Moderate Pain) 7 Days Qty: 42 0RF Discontinued aspirin 81 mg Tablet 81 mg PO DAILY Discharge Orders: Discharge Order (Routine); Ordered 10/13/22 Ordered By: Heriberto Valverde Referrals: Heriberto Valverde, DO [Physician] - Discharge Diet: Advance as tolerated Discharge Activity: Increase activity as tolerated Patient Instructions: Joint Replacement Surgery (GEN), Knee Replacement (GEN), OB Discharge Report, Opioid Safety, Post Anesthesia Care Activity Restrictions/Additional Instructions: Orthopedic discharge instructions: Weightbearing as tolerated to the left lower extremity Take down dressing after 48 to 72 hours then may shower and rinse incision.? No baths or soaks.? Do not peel glue to mesh that is on skin.? This should remain on in place and will fall off over time.? Pat incision dry after shower and may cover with a dry dressing. Range of motion as tolerated to the left knee Take pain medication as prescribed Take aspirin 325 mg twice daily for blood clot prevention Stool softener as needed for constipation Ice and Elevate as needed Follow-up with Dr. Valverde in in 2 weeks Contact the office for any questions or concerns Discharge Attestations Time Spent in Discharge Care*: greater than 30 min Quality Metrics Clinical Quality Measures [ No reported AMI, CVA or VTE this stay] Coding Level of Care Code Acute Chg FW DC note Diagnoses S/P total knee arthroplasty Z96.659 DJD (degenerative joint disease) M19.90 Time Spent (min) 45
[2022-10-13] MEDS: lactated ringers 1,000 ML 100 ML IV (16:22)
[2022-10-13] MEDS: aspirin 325 mg EC Tablet PO (16:23)
[2022-10-13] MEDS: iron polysaccharide complex 150 mg Capsule PO (16:25)
[2022-10-13] MEDS: calcium carb-vit d 600mg/400unit 1 Tablet 1 EACH PO (16:25)
--- NOTE | 2022-10-14 10:41 | PC.OT ---
OT Eval - Patient discharged before time of evaluation.
== END 2022-10-13 18:30 | disposition home or self-care (01) ==
LOC: OBGYN 12:09
PROVIDERS: Admitting Provider Student in an Organized Health Care Education/Training Program; PCP Family Medicine; Visit Provider Student in an Organized Health Care Education/Training Program
PROC: 8E0Y0CZ Robotic Assisted Procedure of Lower Extremity, Open Approach (ICD-10-PCS; CPT 27447; principal; 2022-10-13 07:55)
PROC: (CPT 27447; 2022-10-13 07:55)
DX: M17.12 Unilateral primary osteoarthritis, left knee (principal); Z79.82 Long term (current) use of aspirin
CPT/HCPCS: 27447; 73562; 97116; 97161; C1713; C1776; G0378; J0131; J0171; J0690; J1100; J1170; J1200; J1885; J2250; J2370; J2405; J2704; J2795; J3010; J3490; J7030; J7120

== ENCOUNTER 2022-10-20 06:00 | Outpatient (RCR) | payer OTHER, SELFPAY | END 2022-10-23 23:59 | disposition home or self-care (01) | LOC: SPT 06:00 | PROVIDERS: PCP Family Medicine; Visit Provider Student in an Organized Health Care Education/Training Program | DX: Z96.652 Presence of left artificial knee joint (principal) | CPT/HCPCS: 97110; 97161 ==

== ENCOUNTER 2022-10-24 06:00 | Outpatient (RCR) | payer OTHER, SELFPAY | END 2022-11-23 23:59 | disposition home or self-care (01) | LOC: SPT 06:00 | PROVIDERS: PCP Family Medicine; Visit Provider Student in an Organized Health Care Education/Training Program | DX: Z47.1 Aftercare following joint replacement surgery (principal); Z89.512 Acquired absence of left leg below knee | CPT/HCPCS: 97110 ==

== ENCOUNTER → 2022-11-01 10:35 | Outpatient (BNVA) | payer OTHER, SELFPAY | PROVIDERS: PCP Family Medicine; Visit Provider Student in an Organized Health Care Education/Training Program | DX: Z96.653 Presence of artificial knee joint, bilateral (principal) | CPT/HCPCS: 73560; 73565 ==

== ENCOUNTER 2022-11-24 06:00 | Outpatient (RCR) | payer OTHER, SELFPAY | END 2022-11-30 23:59 | disposition home or self-care (01) | LOC: SPT 06:00 | PROVIDERS: PCP Family Medicine; Visit Provider Student in an Organized Health Care Education/Training Program | DX: Z47.1 Aftercare following joint replacement surgery (principal); Z96.652 Presence of left artificial knee joint | CPT/HCPCS: 97110 ==

== ENCOUNTER → 2023-06-09 14:56 | Outpatient (BNVA) | payer OTHER, SELFPAY | PROVIDERS: PCP Family Medicine; Visit Provider Student in an Organized Health Care Education/Training Program | DX: M17.12 Unilateral primary osteoarthritis, left knee; Z96.653 Presence of artificial knee joint, bilateral | CPT/HCPCS: 73560; 73565 ==

== ENCOUNTER → 2023-08-04 13:13 | Outpatient (BNVA) | payer OTHER, SELFPAY | PROVIDERS: PCP Family Medicine; Visit Provider Student in an Organized Health Care Education/Training Program | DX: M16.0 Bilateral primary osteoarthritis of hip | CPT/HCPCS: 73521 ==

== ENCOUNTER → 2023-11-15 08:59 | Outpatient (BNVA) | payer OTHER, SELFPAY | PROVIDERS: PCP Family Medicine; Visit Provider Physician Assistant | DX: Z96.652 Presence of left artificial knee joint | CPT/HCPCS: 73560; 73565 ==

== ENCOUNTER → 2024-05-11 10:52 | Outpatient (BNVA) | payer OTHER, SELFPAY | PROVIDERS: PCP Family Medicine; Visit Provider Student in an Organized Health Care Education/Training Program | DX: M16.0 Bilateral primary osteoarthritis of hip (principal) | CPT/HCPCS: 77002 ==

== ENCOUNTER → 2025-01-11 10:50 | Outpatient (BNVA) | payer MEDICARE, SELFPAY | PROVIDERS: PCP Family Medicine; Visit Provider Student in an Organized Health Care Education/Training Program | DX: M16.0 Bilateral primary osteoarthritis of hip (principal) | CPT/HCPCS: 20610; 77002; J3301; J9999 ==

== ENCOUNTER → 2025-01-30 11:01 | Outpatient (BNVA) | payer MEDICARE, SELFPAY | PROVIDERS: PCP Family Medicine; Visit Provider Student in an Organized Health Care Education/Training Program | DX: Z96.659 Presence of unspecified artificial knee joint (principal) | CPT/HCPCS: 73560; 73565; 99213 ==

== ENCOUNTER → 2025-05-17 11:16 | Outpatient (BNVA) | payer MEDICARE, OTHER, SELFPAY | PROVIDERS: PCP Family Medicine; Visit Provider Student in an Organized Health Care Education/Training Program | DX: M16.0 Bilateral primary osteoarthritis of hip (principal) | CPT/HCPCS: 20610; 77002; J3301; J9999 ==